=== PATIENT | male | born 1970 | race American Indian/Alaskan Native ===

== ENCOUNTER 2018-04-21 13:01 | Inpatient (IN) | payer MEDICARE ==
[2018-04-21] MEDS ORDERED: CARDIZEM IVP ONE (14:02)
[2018-04-21] MEDS ORDERED: TYLENOL PO ONE (14:02)
[2018-04-21 14:04] LABS: Hemoglobin 13.4 gm/dl (11.8-15.2); Mean Corpuscular HGB Conc 34 % (32-34); Mean Corpuscular Hemoglobin 33 pg (28-32); Mean Corpuscular Volume 99 fl (84-94); Red Blood Count 4.02 M/mm3 (3.65-5.03); Red Cell Distribution Width 16.5 % (13.2-15.2)
[2018-04-21 14:08] LABS: Platelet Count 96 K/mm3 (140-440)
[2018-04-21] MEDS ORDERED: NACL 0.9% 250ML 250 ML IV ONE (14:08)
--- NOTE | 2018-04-21 14:20 | Emergency Department Report ---
ED General Adult HPI - General Chief complaint: Arrhythmia/Palpitations Stated complaint: RAPID HEART BEAT Time Seen by Provider: 04/21/18 13:04 Source: patient, EMS Mode of arrival: Stretcher Limitations: No Limitations - History of Present Illness Initial comments: Patient is a 47-year-old male with a history of end-stage renal disease, DVT, prior CVA with a history of a facial who presents with the complaint of having an elevated heart rate and elevated blood pressure while at dialysis today. She apparently had an hour and a half worth of dialysis and initially was having dialysis on his right upper extremity fistula and this was transitioned to his left permacath as the patient became clogged per the patient. Patient never had no fever over the past 24 hours. Patient denies any chest pain or shortness of breath. After being brought in by EMS patient initially presented with heart rate in the 170s was down trended to 113 and a blood pressure 246/ 140 was down trended to 128/86 with no interventions. Patient denies any vomiting. Daughter states that the primary access for his dialysis has been his fistula and discussions had been had in the past on possibly removing the permacath. Patient denies cough, sore throat, or any sick contacts. - Related Data Home Medications Medication Instructions Recorded Confirmed Last Taken Cinacalcet HCl [Sensipar] 90 mg PO QPM 05/30/16 04/21/18 04/20/18 Warfarin Sodium 5 mg PO QDAY 05/30/16 04/21/18 04/20/18 Metoprolol [Lopressor TAB] 25 mg PO Q12H 12/26/17 04/21/18 Unknown Allergies Allergy/AdvReac Type Severity Reaction Status Date / Time cortisone [Cortisone] Allergy Unknown Verified 04/21/18 14:04 ED Review of Systems ROS: Stated complaint: RAPID HEART BEAT Other details as noted in HPI Constitutional: denies: chills, fever Eyes: denies: eye pain, eye discharge, vision change ENT: denies: ear pain, throat pain Respiratory: denies: cough, shortness of breath, wheezing Cardiovascular: denies: chest pain, palpitations Endocrine: no symptoms reported Gastrointestinal: denies: abdominal pain, nausea, diarrhea Genitourinary: denies: urgency, dysuria Musculoskeletal: denies: back pain, joint swelling, arthralgia Skin: denies: rash, lesions Neurological: denies: headache, weakness, paresthesias Psychiatric: denies: anxiety, depression Hematological/Lymphatic: denies: easy bleeding, easy bruising ED Past Medical Hx - Past Medical History Previous Medical History?: Yes Hx Hypertension: Yes Hx CVA: Yes Hx Heart Attack/AMI: Yes Hx Congestive Heart Failure: Yes Hx Diabetes: Yes Hx Renal Disease: Yes (ESRD on dialysis) Hx Seizures: Yes Hx Asthma: No Hx COPD: No Hx HIV: No Additional medical history: Anemia, - Surgical History Additional Surgical History: brain, left knee, shunt to right arm - Social History Smoking Status: Current Every Day Smoker Substance Use Type: None - Medications Home Medications: Home Medications Medication Instructions Recorded Confirmed Last Taken Type Cinacalcet HCl [Sensipar] 90 mg PO QPM 05/30/16 04/21/18 04/20/18 History Warfarin Sodium 5 mg PO QDAY 05/30/16 04/21/18 04/20/18 History Metoprolol [Lopressor TAB] 25 mg PO Q12H 12/26/17 04/21/18 Unknown History ED Physical Exam - General Limitations: No Limitations General appearance: alert, in no apparent distress - Head Head exam: Present: atraumatic, normocephalic - Eye Eye exam: Present: normal appearance - ENT ENT exam: Present: mucous membranes dry - Neck Neck exam: Present: normal inspection, other (supple;). Absent: lymphadenopathy - Respiratory Respiratory exam: Present: decreased breath sounds (in lower lung carney). Absent: respiratory distress - Cardiovascular Cardiovascular Exam: Present: regular rate, normal rhythm. Absent: systolic murmur, diastolic murmur, rubs, gallop - GI/Abdominal GI/Abdominal exam: Present: soft, normal bowel sounds - Rectal Rectal exam: Present: deferred - Extremities Exam Extremities exam: Present: normal inspection - Back Exam Back exam: Present: normal inspection - Neurological Exam Neurological exam: Present: alert, oriented X3 - Psychiatric Psychiatric exam: Present: normal affect, normal mood - Skin Skin exam: Present: warm, dry, intact, normal color. Absent: rash ED Course Vital Signs 04/21/18 04/21/18 04/21/18 13:30 13:57 14:01 Temperature 103.2 F H Pulse Rate 136 H 121 H Respiratory 16 16 15 Rate Blood Pressure 163/138 103/56 O2 Sat by Pulse 96 95 94 Oximetry 04/21/18 04/21/18 04/21/18 14:30 15:00 15:30 Temperature Pulse Rate 110 H 111 H 115 H Respiratory 17 18 22 Rate Blood Pressure 97/51 86/44 91/46 O2 Sat by Pulse 98 95 96 Oximetry ED Medical Decision Making - Lab Data Result diagrams: 04/21/18 13:53 04/21/18 13:58 - EKG Data -: EKG Interpreted by Me Rate: tachycardia - EKG Data Interpretation: LVH, other (Atrial Fibrillation with RVR) - Radiology Data Radiology results: report reviewed - Medical Decision Making Patient noted be febrile while in emergency department and blood cultures were drawn. Patient has no obvious evidence of pneumonia on chest x ray or pharyngitis of physical exam. He has a normal white count as well. However with the presence of a vas cath in his left chest that shows no obvious evidence of erythema or exudate surrounding it, with the presence of fever this may potentially be a source of infection and patient was given vancomycin therapy while here in the emergency department. Patient also noted to be in atrial fibrillation with a rapid ventricular rate. Patient initially was to be given diltiazem therapy however his systolic blood pressure dropped into the 80s and was giving hydration with 2 fluid boluses of 250 ml while here in the ER. Patient has remained asymptomatic and is talking with his . - Differential Diagnosis Bacteremia; Dehydration; Anemia; Electrolyte Abnormality Critical care time in (mins) excluding proc time.: 38 Critical care attestation.: If time is entered above; I have spent that time in minutes in the direct care of this critically ill patient, excluding procedure time. Critical Care time includes time spent on frequent reassessments, physician consultation, and direct bedside care. ED Disposition Clinical Impression: Fever, Atrial fibrillation with rapid ventricular response, ESRD (end stage renal disease), Hypotension Disposition: OP ADMIT IP TO THIS HOSP Is pt being admited?: Yes Condition: Fair Referrals: PRIMARY CARE, [Primary Care Provider] - 3-5 Days Time of Disposition: 16:34
[2018-04-21 14:40] LABS: Band Neutrophils # (Manual) 0.3 K/mm3; Basophils % (Manual) 0 % (0.0-1.8); Eosinophils % (Manual) 0 % (0.0-4.3); Total Cells Counted 100
[2018-04-21 14:41] LABS: Anisocytosis 1+; Burr Cells Few; Ovalocytes 1+; Platelet Estimate Appears Decreased; Tear Drop Cells Few
[2018-04-21 14:43] LABS: Albumin 3.4 g/dL (3.9-5); Calcium 8.7 mg/dL (8.4-10.2)
[2018-04-21] MEDS ORDERED: CARDIZEM IV ONE ×3 (14:45→15:00)
[2018-04-21 15:05] LABS: Chol/HDL Ratio 4.71 %
--- NOTE | 2018-04-21 15:22 | XRay Report ---
AP CHEST: HISTORY: chest pain Cardiomegaly is nearly resolved since 12/26/17. The heart is borderline in size on today's exam. Normal pulmonary vascularity. The lungs are clear. Left IJ venous catheter is unchanged in position. IMPRESSION: Borderline cardiomegaly. Lungs clear.
[2018-04-21 15:29] LABS: INR 2.17 (0.87-1.13)
[2018-04-21 15:30] LABS: Partial Thromboplastin Time 35.5 Sec. (24.2-36.6)
--- NOTE | 2018-04-21 15:49 | History and Physical Report ---
History of Present Illness Chief complaint: Im shaking, and I feel cold History of present illness: 47 YO Male with ESRD on HD (M,W,F), DVT, CVA with dysarthria, [place], CHF, Atrial Fib, Nicotine Dependence presents to ED for evaluation. Pt states that he has experienced subjective fever, and shaking chills over the past 1 day. Pt presented to dialysis clinic today and was found to have uncontrolled hypertension and blood pressure of 246/140 and heart rate in the 170's. EMS was notified and patient was transported to [facility] For further care and evaluation. Pt seen and evaluated in ED, Pt spiked a temperature to 103. Pt also states that he felt the same way the last time he had an infection. Pt ackowledges mild tenderness around his permacath site. Pt found to have ESRD, SIRS, Atrial Fib with RVR, and CHF. Pt denies CP, Palpitations, NVD, Syncope, Trauma, Skin Rash, Productive Cough, or recent ill contacts. Pt admitted to telemetry. Nephrology consulted in ED. Past History Past Medical History: acute [place], ESRD, heart failure, hypertension, stroke Past Surgical History: Other (Brain, L Knee, AV Fistula) Social history: , lives with family. denies: smoking, alcohol abuse, prescription drug abuse Family history: hypertension Medications and Allergies Allergies Allergy/AdvReac Type Severity Reaction Status Date / Time cortisone [Cortisone] Allergy Unknown Verified 04/21/18 14:04 Home Medications Medication Instructions Recorded Confirmed Last Taken Type Cinacalcet HCl [Sensipar] 90 mg PO QPM 05/30/16 04/21/18 04/20/18 History Warfarin Sodium 5 mg PO QDAY 05/30/16 04/21/18 04/20/18 History Metoprolol [Lopressor TAB] 25 mg PO Q12H 12/26/17 04/21/18 Unknown History Sevelamer Carbonate [Renvela] 800 mg PO TIDWM 04/21/18 04/21/18 Unknown History Active Meds: Active Medications Vancomycin HCl (Vancomycin/Ns 1 Gm/250 Ml) 1 gm in 250 mls @ 167.007 mls/hr IV ONCE SILVANA; Protocol Review of Systems Constitutional: fever, chills, weakness Ears, nose, mouth and throat: no ear pain, no ear discharge, no tinnitis, no decreased hearing, no nose pain Cardiovascular: no chest pain, no orthopnea, no palpitations, no rapid/ irregular heart beat, no edema Respiratory: no cough, no cough with sputum, no excessive sputum, no hemoptysis , no shortness of breath Gastrointestinal: no abdominal pain, no nausea, no vomiting, no diarrhea Genitourinary Male: no dysuria, no hematuria, no flank pain, no discharge, no urinary frequency, no urinary hesitancy Rectal: no pain, no incontinence, no bleeding, no itching, no hemorrhoids, no discharge Musculoskeletal: no neck stiffness, no neck pain, no shooting arm pain, no arm numbness/tingling, no low back pain Integumentary: no rash, no pruritis, no redness, no sores, no wounds, no jaundice Neurological: no head injury, no transient paralysis, no paralysis, no weakness , no parathesias Psychiatric: no anxiety, no memory loss, no change in sleep habits, no sleep disturbances, no change in libido Endocrine: no cold intolerance, no heat intolerance, no polyphagia, no excessive thirst, no polydipsia, no polyuria Hematologic/Lymphatic: no easy bruising, no easy bleeding, no lymphadenopathy, no lymphedema Allergic/Immunologic: no urticaria, no allergic rhinitis, no wheezing, no persistent infections, no anaphylaxis Exam - Constitutional Vitals: Temp Pulse Resp BP Pulse Ox 103.2 F H 111 H 18 86/44 95 04/21/18 13:57 04/21/18 15:00 04/21/18 15:00 04/21/18 15:00 04/21/18 15:00 General appearance: Present: mild distress - EENT Eyes: Present: PERRL ENT: hearing intact, clear oral mucosa - Neck Neck: Present: supple, normal ROM - Respiratory Respiratory effort: normal Respiratory: bilateral: CTA - Cardiovascular Heart Sounds: Present: S1 & S2. Absent: rub, click - Extremities Extremities: pulses symmetrical, No edema Peripheral Pulses: within normal limits - Abdominal General gastrointestinal: Present: soft, non-tender, non-distended, normal bowel sounds Male genitourinary: Present: normal - Integumentary Integumentary: Present: clear, warm, dry - Musculoskeletal Musculoskeletal: gait normal, strength equal bilaterally - Psychiatric Psychiatric: appropriate mood/affect, intact judgment & insight - Neurologic Neurologic: CNII-XII intact, moves all extremities Results - Labs CBC & Chem 7: 04/22/18 04:56 04/21/18 13:58 Labs: Abnormal lab results 04/21/18 04/21/18 04/21/18 Range/Units 13:53 13:58 14:40 MCV 99 H (84-94) fl MCH 33 H (28-32) pg RDW 16.5 H (13.2-15.2) % Plt Count 96 L (140-440) K/mm3 Seg Neuts % (Manual) 91.0 H (40.0-70.0) % Lymphocytes % (Manual) 2.0 L (13.4-35.0) % Lymphocytes # (Manual) 0.1 L (1.2-5.4) K/mm3 PT 25.6 H (12.2-14.9) Sec. INR 2.17 H (0.87-1.13) Sodium 134 L (137-145) mmol/L Potassium 3.2 L (3.6-5.0) mmol/L Chloride 92.4 L (98-107) mmol/L BUN 22 H (9-20) mg/dL Creatinine 11.2 H (0.8-1.5) mg/dL Glucose 152 H (75-100) mg/dL Lactic Acid (0.7-2.0) mmol/L Total Bilirubin 2.10 H (0.1-1.2) mg/dL ALT 6 L (7-56) units/L Total Creatine Kinase 229 H (55-170) units/L Troponin T 0.073 H (0.00-0.029) ng/mL Albumin 3.4 L (3.9-5) g/dL HDL Cholesterol 21 L (40-59) mg/dL Lipase 12 L (13-60) units/L 04/21/18 04/21/18 Range/Units 14:40 14:40 MCV (84-94) fl MCH (28-32) pg RDW (13.2-15.2) % Plt Count (140-440) K/mm3 Seg Neuts % (Manual) (40.0-70.0) % Lymphocytes % (Manual) (13.4-35.0) % Lymphocytes # (Manual) (1.2-5.4) K/mm3 PT (12.2-14.9) Sec. INR (0.87-1.13) Sodium (137-145) mmol/L Potassium (3.6-5.0) mmol/L Chloride (98-107) mmol/L BUN (9-20) mg/dL Creatinine (0.8-1.5) mg/dL Glucose (75-100) mg/dL Lactic Acid 3.50 H* (0.7-2.0) mmol/L Total Bilirubin (0.1-1.2) mg/dL ALT (7-56) units/L Total Creatine Kinase 252 H (55-170) units/L Troponin T (0.00-0.029) ng/mL Albumin (3.9-5) g/dL HDL Cholesterol (40-59) mg/dL Lipase (13-60) units/L Assessment and Plan - Patient Problems (1) SIRS due to infectious process with acute organ dysfunction Current Visit: Yes Status: Acute Plan to address problem: Iv antibiotics, IVF resuscitation, monitor uop q shift, serial lactic acid, blood cultures, urinalysis, blood culture from permacath, chext x ray, (2) CHF (congestive heart failure) Current Visit: Yes Status: Acute Qualifiers: Heart failure chronicity: acute on chronic Plan to address problem: Strict I/O, monitor uop q shift, daily weight, afterload reduction, chest x ray , supplemental oxygen, cardiology consult. Pt S/P Echo and S/P cardiac cath. (3) Atrial fibrillation with rapid ventricular response Current Visit: Yes Status: Acute Plan to address problem: resume rate control, supportive care. admit to telemetry, (4) Bacteremia associated with intravascular line Current Visit: No Status: Suspected Plan to address problem: Empiric antibiotic therapy, blood cultured, Nephrology consulted and symptoms discussed with nephrology service. Pending removal/replacement of permacath after Nephrology team discussed with vascular service. (5) Atrial fibrillation Current Visit: No Status: Chronic Qualifiers: Atrial fibrillation type: persistent Qualified Code(s): I48.1 - Persistent atrial fibrillation Plan to address problem: Resume rate control, Pt did not take rate control medication due to planned cataract surgery today. (6) ESRD (end stage renal disease) on dialysis Current Visit: No Status: Chronic (7) DVT prophylaxis Current Visit: No Status: Acute Plan to address problem: SCD to BLE while in bed
[2018-04-21] MEDS ORDERED: VANCOMYCIN/NS 1 GM/250 ML 1 GM/250 ML BAG IV SCH (16:00)
[2018-04-21] MEDS ORDERED: NACL 0.9% 500 ML 500 ML IV ONE (16:04)
[2018-04-21] MEDS ORDERED: SODIUM CHLORIDE FLUSH SYRINGE 10 ML IV PRN (16:27)
[2018-04-21] MEDS ORDERED: TYLENOL PO PRN (16:27)
[2018-04-21] MEDS ORDERED: PROVENTIL IH PRN (16:27)
[2018-04-21] MEDS ORDERED: ZOFRAN IV PRN (16:27)
[2018-04-22 05:27] LABS: Basophils % (Auto) 0.3 % (0.0-1.8); Eosinophils # (Auto) 0.1 K/mm3 (0.0-0.4); Eosinophils % (Auto) 1.9 % (0.0-4.3); Hematocrit 37.2 % (35.5-45.6); Hemoglobin 12.7 gm/dl (11.8-15.2); Lymphocytes # (Auto) 0.7 K/mm3 (1.2-5.4); Lymphocytes % (Auto) 10.5 % (13.4-35.0); Mean Corpuscular HGB Conc 34 % (32-34); Mean Corpuscular Hemoglobin 34 pg (28-32); Mean Corpuscular Volume 99 fl (84-94); Monocytes # (Auto) 0.7 K/mm3 (0.0-0.8); Monocytes % (Auto) 10.8 % (0.0-7.3); Platelet Count 100 K/mm3 (140-440); Red Blood Count 3.75 M/mm3 (3.65-5.03); Red Cell Distribution Width 16.5 % (13.2-15.2)
[2018-04-22] MEDS: SODIUM CHLORIDE FLUSH SYRINGE 10 ML IV SCH ×3 (07:16→21:28)
--- NOTE | 2018-04-22 09:46 | Consultation ---
History of Present Illness - History of Present Illness Thank you for the consultation ! Patient was evaluated today My assessment and plan are as follows; ESRD: Patient is currently in maintenance hemodialysis, his fistula did not work is currently being followed by his vascular surgeon catheter had to be used after which she started developing fever and chills did not feel good was also tachycardic has had evidence of lactic acidosis patient likely has line sepsis His dialysis catheter needs to be removed vascular surgery should be consulted in my opinion, as far as his fistula is concerned he does have not have a good thrill and bruit But working for now I believe he needs to be seen by vascular surgery, Dr bradley who is his vascular surgeon Anemia in end-stage renal disease: To monitor and follow hemoglobin currently 12.7 no erythropoietin needed Low platelet count: Check HIT panel for now due to dialysis status Lactic acidosis likely resulting from sepsis Hypokalemia: Mild 3.2 needs follow-up, Secondary hyperparathyroidism: Patient is currently on binders as well as Sensipar which she will need to continue Blood cultures: Currently in progress, continue with empiric antibiotic, infectious disease consultation recommended follow-up on the culture outpatient culture verbal report: Gram-negative gregory Patient was adequately counseled and educated regarding multiple renal related issues. overall prognosis remains guarded at this time All renal related questions were answered and simple Bengali pertinent lab studies as well as imaging results were also discussed with patient We will continue to follow and make recommendations from renal standpoint. Thank you for the consultation Author: Will Arreguin M.D. [facility], [address] [place] [address] Tel; [phone] Source of information: From patient History of present illness Patient is a 47-year-old -[place] male who has been currently on hemodialysis at [facility]. Patient is currently being followed by vascular surgeon Dr Bradley, and has had fistula placed which was working up until the used his dialysis catheter after which she became febrile and was sent to the hospital. Patient was also noted to have tachycardia lactic acidosis and was not feeling good and has had fever and chills. Lately he has been feeling very sad and was tearful during interview admits being depressed chronically and is willing to try an antidepressant he currently does not have any suicidal ideations, Outpatient blood culture as of today have been reported to have gram-negative gregory Patient is feeling much better today is fistula however has not been, use will during the last dialysis treatment, which does require further evaluation Past medical history significant for End-stage renal disease Anemia and end-stage renal disease Acute myocardial infarction Hypertension Stroke Patient also feels that he has been depressed Current allergies: Cortisone Home medication: Reviewed Social history: Patient is lives with his family no history of any alcohol drug or substance abuse Family history: Positive for hypertension Review of system: Malfunctioning fistula, fever and chills after using the dialysis catheter,patient was also noted to be tachycardic with lactic acidosis Also feels depressed not suicidal chronic issue was very tearful All other review of system were negative Physical examination Vitals: Reviewed General: No acute distress HEENT: Oral mucosa moist no pallor or icterus Neck: Supple without any JVD thyromegaly or nodular mass Chest: Clear to auscultation, catheter site unremarkable, hygiene poor Heart: Regular rate and rhythm S1-S2 heard no S3-S4 Abdomen: Soft nontender, bowel sounds present no renal bruit no suprapubic masses no CVA tenderness noted Extremity: Minimal edema dry skin no peripheral cyanosis fistula: Appears to have poorly matured Endocrine: Thyroid not enlarged Psychiatric: No agitation and aggression noted Musculoskeletal: No joint effusion noted Labs and x-rays: Reviewed from this admission Past History Past Medical History: acute [place], ESRD, heart failure, hypertension, stroke Past Surgical History: Other (Brain, L Knee, AV Fistula) Social history: , lives with family. denies: smoking, alcohol abuse, prescription drug abuse Family history: hypertension Medications and Allergies Allergies Allergy/AdvReac Type Severity Reaction Status Date / Time cortisone [Cortisone] Allergy Unknown Verified 04/21/18 14:04 Home Medications Medication Instructions Recorded Confirmed Last Taken Type Cinacalcet HCl [Sensipar] 90 mg PO QPM 05/30/16 04/21/18 04/20/18 History Warfarin Sodium 5 mg PO QDAY 05/30/16 04/21/18 04/20/18 History Metoprolol [Lopressor TAB] 25 mg PO Q12H 12/26/17 04/21/18 Unknown History Sevelamer Carbonate [Renvela] 800 mg PO TIDWM 04/21/18 04/21/18 Unknown History Active Meds: Active Medications Acetaminophen (Tylenol) 650 mg PO Q4H PRN PRN Reason: Pain MILD(1-3)/Fever >100.5/BOOTHE Albuterol (Proventil) 2.5 mg IH Q4HRT PRN PRN Reason: Shortness Of Breath Cinacalcet (Sensipar) 90 mg PO QPM [facility] Metoprolol Tartrate (Lopressor) 25 mg PO Q12H [facility] Ondansetron HCl (Zofran) 4 mg IV Q8H PRN PRN Reason: Nausea And Vomiting Sevelamer Carbonate (Renvela) 800 mg PO TIDWM [facility] Sodium Chloride (Sodium Chloride Flush Syringe 10 Ml) 10 ml IV BID [facility] Last Admin: 04/22/18 07:16 Dose: Not Given Sodium Chloride (Sodium Chloride Flush Syringe 10 Ml) 10 ml IV PRN PRN PRN Reason: LINE FLUSH Warfarin Sodium (Coumadin) 5 mg PO QDAY [facility]; Protocol Exam - Vital Signs Vital signs: Vital Signs Resp Pulse Ox 16 96 04/21/18 13:30 04/21/18 13:30 Results - Lab Results 04/22/18 04:56 04/21/18 13:58 Most recent lab results Calcium 8.7 mg/dL (8.4-10.2) 04/21/18 13:58
[2018-04-22] MEDS: LOPRESSOR PO SCH ×2 (10:25→21:29)
[2018-04-22] MEDS: RENVELA PO SCH ×3 (10:25→17:14)
--- NOTE | 2018-04-22 12:04 | Consultation ---
History of Present Illness Consult date: 04/22/18 Requesting physician: LILY LEE Consult reason: congestive heart failure History of present illness: The pt is a 47 YO male with a past medical history significant for ESRD on HD, permanent atrial fibrillation, anticoagulated with coumadin (consideration being given for Watchman device), CVA (hx of CVA in 2011 on coumadin with bleeding complications including subdural hemorrhage in 2012 requiring craniotomy), DVT, HTN, FIDEL. He is followed by [facility]. He presented with complaints of fever and chills for 1 day prior to arrival. He presented to dialysis clinic yesterday and was found to have elevated BPs and atrial fibrillation with RVR and was transported to [facility] ED for further eval/ management. Following arrival to ED, he was found to be in AFib RVR, BP 163/138 , T 103.2. He was given IV cardizem and is in AFib with CVR on evaluation. He denies any chest pain, palpitations, n/v, diaphoresis, dizziness or syncope. He reports compliance with his medication regimen and dialysis schedule. Echo done 09/2016 showed EF 55%, mod LVH, severe diastolic dysfunction with restrictive pattern, mild to mod MVR, mild to mod TR, severely dilated atria (L> R), mod elevated RVSP, borderline dilated ascending aorta (3.7cm). Lexiscan MPI stress test done 12/2017 was negative for significant ischemia. Past History Past Medical History: atrial fib, ESRD, heart failure, hypertension, stroke Past Surgical History: Other (Brain, L Knee, AV Fistula) Social history: , lives with family. denies: smoking, alcohol abuse, prescription drug abuse Family history: hypertension Medications and Allergies Allergies Allergy/AdvReac Type Severity Reaction Status Date / Time cortisone [Cortisone] Allergy Unknown Verified 04/21/18 14:04 Home Medications Medication Instructions Recorded Confirmed Last Taken Type Cinacalcet HCl [Sensipar] 90 mg PO QPM 05/30/16 04/21/18 04/20/18 History Warfarin Sodium 5 mg PO QDAY 05/30/16 04/21/18 04/20/18 History Metoprolol [Lopressor TAB] 25 mg PO Q12H 12/26/17 04/21/18 Unknown History Sevelamer Carbonate [Renvela] 800 mg PO TIDWM 04/21/18 04/21/18 Unknown History Active Meds: Active Medications Acetaminophen (Tylenol) 650 mg PO Q4H PRN PRN Reason: Pain MILD(1-3)/Fever >100.5/BOOTHE Albuterol (Proventil) 2.5 mg IH Q4HRT PRN PRN Reason: Shortness Of Breath Cinacalcet (Sensipar) 90 mg PO QPM [facility] Metoprolol Tartrate (Lopressor) 25 mg PO Q12H [facility] Last Admin: 04/22/18 10:25 Dose: 25 mg Ondansetron HCl (Zofran) 4 mg IV Q8H PRN PRN Reason: Nausea And Vomiting Sevelamer Carbonate (Renvela) 800 mg PO TIDWM [facility] Last Admin: 04/22/18 11:55 Dose: 800 mg Sodium Chloride (Sodium Chloride Flush Syringe 10 Ml) 10 ml IV BID [facility] Last Admin: 04/22/18 10:26 Dose: 10 ml Sodium Chloride (Sodium Chloride Flush Syringe 10 Ml) 10 ml IV PRN PRN PRN Reason: LINE FLUSH Warfarin Sodium (Coumadin) 5 mg PO DAILY@1700 [facility]; Protocol Review of Systems Constitutional: fever, chills, no weight loss, no weight gain Ears, nose, mouth and throat: no ear pain, no nose pain, no sinus pressure, no sinus pain Cardiovascular: high blood pressure, no chest pain, no orthopnea, no palpitations, no rapid/irregular heart beat, no edema, no syncope, no lightheadedness, no shortness of breath, no dyspnea on exertion Respiratory: no cough, no shortness of breath, no dyspnea on exertion, no congestion, no wheezing, no pain on inspiration Gastrointestinal: no abdominal pain, no nausea, no vomiting, no diarrhea, no constipation, no change in bowel habits Genitourinary Male: no dysuria, no hematuria, no flank pain, no discharge, no urinary frequency, no urinary hesitancy Musculoskeletal: no neck stiffness, no neck pain, no shooting arm pain, no arm numbness/tingling, no low back pain, no shooting leg pain Integumentary: no rash, no pruritis, no redness, no sores, no wounds Neurological: no head injury, no paralysis, no weakness, no parathesias, no numbness, no tingling, no seizures, no syncope Psychiatric: no anxiety Endocrine: no cold intolerance, no heat intolerance Hematologic/Lymphatic: no easy bruising, no easy bleeding, no lymphadenopathy Allergic/Immunologic: no urticaria, no wheezing, no persistent infections Physical Examination Vital Signs Resp Pulse Ox 16 96 04/21/18 13:30 04/21/18 13:30 General appearance: no acute distress HEENT: Positive: PERRL, Normocephaly, Mucus Membranes Moist Neck: Positive: neck supple, trachea midline Cardiac: Positive: irregularly irregular, S1/S2, Systolic Murmur Lungs: Positive: clear to auscultation Neuro: Positive: Grossly Intact Abdomen: Positive: Soft. Negative: Tender Skin: Positive: Clear. Negative: Rash, Wound Musculoskeletal: No Fluid Collection, No Pain, Normal Range of Motion Extremities: Absent: edema Results 04/22/18 04:56 04/21/18 13:58 Cardiac Enzymes 04/21/18 Range/Units 13:58 AST 17 (5-40) units/L Coagulation 04/21/18 Range/Units 14:40 PT 25.6 H (12.2-14.9) Sec. INR 2.17 H (0.87-1.13) APTT 35.5 (24.2-36.6) Sec. Lipids 04/21/18 Range/Units 13:58 Triglycerides 101 (2-149) mg/dL Cholesterol 99 (50-199) mg/dL HDL Cholesterol 21 L (40-59) mg/dL Cholesterol/HDL Ratio 4.71 % CBC 04/21/18 04/22/18 Range/Units 13:53 04:56 WBC 4.6 6.5 (4.5-11.0) K/mm3 RBC 4.02 3.75 (3.65-5.03) M/mm3 Hgb 13.4 12.7 (11.8-15.2) gm/dl Hct 40.0 37.2 (35.5-45.6) % Plt Count 96 L 100 L (140-440) K/mm3 Lymph # 0.7 L (1.2-5.4) K/mm3 Baxter # 0.7 (0.0-0.8) K/mm3 Eos # 0.1 (0.0-0.4) K/mm3 Baso # 0.0 (0.0-0.1) K/mm3 Comprehensive Metabolic Panel 04/21/18 Range/Units 13:58 Sodium 134 L (137-145) mmol/L Potassium 3.2 L (3.6-5.0) mmol/L Chloride 92.4 L (98-107) mmol/L Carbon Dioxide 23 (22-30) mmol/L BUN 22 H (9-20) mg/dL Creatinine 11.2 H (0.8-1.5) mg/dL Glucose 152 H (75-100) mg/dL Calcium 8.7 (8.4-10.2) mg/dL AST 17 (5-40) units/L ALT 6 L (7-56) units/L Alkaline Phosphatase 75 (35-129) units/L Total Protein 6.9 (6.3-8.2) g/dL Albumin 3.4 L (3.9-5) g/dL - Imaging and Cardiology Echo: report reviewed ( 09/2016 showed EF 55%, mod LVH, severe diastolic dysfunction with restrictive pattern, mild to mod MVR, mild to mod TR, severely dilated atria (L>R), mod elevated RVSP, borderline dilated ascending aorta ( 3.7cm).) EKG: report reviewed, image reviewed EKG interpretations - Telemetry EKG Rhythm: Atrial Fibrillation - EKG Supraventricular dysrhythmia: atrial fibrillation Chamber hypertrophy or enlargement: left ventricular hypertro Repolarization changes or abnormalities: repolarization abn secondary to ventricular hypertrophy Assessment and Plan Currently stable cardiac status. No current clinical evidence of acutely decompensated HF. Pt currently in AFib with CVR. Agree with current cardiac regimen. Obtain echo. Blood cultures in progress. Abx per primary. Consider ID consultation per primary. Assessment and plan reviewed with pt at bedside. The patient has been seen in conjunction with Dr. Caraballo who agrees with the assessment and plan of care. - Patient Problems (1) Atrial fibrillation with rapid ventricular response Current Visit: Yes Status: Acute (2) Accelerated hypertension Current Visit: Yes Status: Acute (3) Sepsis Current Visit: Yes Status: Suspected (4) End stage renal disease Current Visit: Yes Status: Chronic (5) History of CVA (cerebrovascular accident) Current Visit: Yes Status: Chronic (6) Sleep apnea Current Visit: Yes Status: Chronic (7) History of DVT (deep vein thrombosis) Current Visit: Yes Status: Chronic
[2018-04-22] MEDS: COUMADIN PO SCH (17:12)
[2018-04-22] MEDS: SENSIPAR PO SCH (17:14)
--- NOTE | 2018-04-22 17:36 | Progress Note ---
Assessment and Plan Assessment and Plan - Patient Problems (1) SIRS due to infectious process with acute organ dysfunction Current Visit: Yes Status: Acute Plan to address problem: Iv antibiotics, IVF resuscitation, monitor uop q shift, serial lactic acid, blood cultures, urinalysis, blood culture from permacath, chext x ray, (2) CHF (congestive heart failure) Current Visit: Yes Status: Acute Qualifiers: Heart failure chronicity: acute on chronic Plan to address problem: Strict I/O, monitor uop q shift, daily weight, afterload reduction, chest x ray , supplemental oxygen, cardiology consult. Pt S/P Echo and S/P cardiac cath. (3) Atrial fibrillation with rapid ventricular response Current Visit: Yes Status: Acute Plan to address problem: resume rate control, supportive care. admit to telemetry, (4) Bacteremia associated with intravascular line Current Visit: No Status: Suspected Plan to address problem: Empiric antibiotic therapy, blood cultured, Nephrology consulted and symptoms discussed with nephrology service. Pending removal/replacement of permacath after Nephrology team discussed with vascular service. (5) Atrial fibrillation Current Visit: No Status: Chronic Qualifiers: Atrial fibrillation type: persistent Qualified Code(s): I48.1 - Persistent atrial fibrillation Plan to address problem: Resume rate control, Pt did not take rate control medication due to planned cataract surgery today. (6) ESRD (end stage renal disease) on dialysis Current Visit: No Status: Chronic (7) DVT prophylaxis Current Visit: No Status: Acute Plan to address problem: SCD to BLE while in bed Subjective Date of service: 04/22/18 Principal diagnosis: SIRS Vascath infection Interval history: Sx better Objective - Constitutional Vitals: Vital Signs - 12hr 04/22/18 04/22/18 04/22/18 06:51 08:04 08:29 Temperature 98.5 F Pulse Rate 86 82 97 H Pulse Rate [ Apical] Respiratory 20 Rate Blood Pressure 108/66 O2 Sat by Pulse 100 Oximetry 04/22/18 04/22/18 04/22/18 10:00 11:29 16:12 Temperature 98.1 F 98.8 F Pulse Rate 78 75 Pulse Rate [ 97 H Apical] Respiratory 20 20 Rate Blood Pressure 98/73 106/68 O2 Sat by Pulse 97 100 Oximetry General appearance: Present: no acute distress, well-nourished - EENT Eyes: PERRL, EOM intact ENT: hearing intact, clear oral mucosa Ears: bilateral: normal - Neck Neck: supple, normal ROM - Respiratory Respiratory effort: normal Respiratory: bilateral: CTA - Breasts Breasts: normal - Cardiovascular Rhythm: regular Heart Sounds: Present: S1 & S2. Absent: gallop, rub Extremities: pulses intact, No edema, normal color, Full ROM - Gastrointestinal General gastrointestinal: Present: soft, non-tender, non-distended, normal bowel sounds - Genitourinary Male genitourinary: normal - Integumentary Integumentary: clear, warm, dry - Musculoskeletal Musculoskeletal: 1, strength equal bilaterally - Neurologic Neurologic: moves all extremities - Psychiatric Psychiatric: memory intact, appropriate mood/affect, intact judgment & insight - Labs CBC & Chem 7: 04/24/18 12:31 04/24/18 12:31 Labs: Abnormal lab results 04/21/18 04/22/18 Range/Units 19:15 04:56 MCV 99 H (84-94) fl MCH 34 H (28-32) pg RDW 16.5 H (13.2-15.2) % Plt Count 100 L (140-440) K/mm3 Lymph % (Auto) 10.5 L (13.4-35.0) % Dixie % (Auto) 10.8 H (0.0-7.3) % Lymph # 0.7 L (1.2-5.4) K/mm3 Seg Neutrophils % 76.5 H (40.0-70.0) % Lactic Acid 2.10 H* (0.7-2.0) mmol/L
[2018-04-22] MEDS ORDERED: VANCOMYCIN PHARMACY TO DOSE IV SCH (18:00)
[2018-04-22] MEDS ORDERED: NON-FORMULARY (Cinacalcet Hcl [Sensipar] 90 MG) PO SCH (18:00)
[2018-04-22] MEDS ORDERED: ROCEPHIN/NS 1 GM/50 ML 1 GM/50 ML BAG IV SCH (18:00)
[2018-04-22] MEDS ORDERED: MAXIPIME/NS 1 GM/100 ML 1 GM/100 ML BAG IV ONE (19:15)
[2018-04-22] MEDS ORDERED: MAXIPIME/NS 2 GM/100 ML 2 GM/100 ML BAG IV SCH (22:00)
[2018-04-23 06:35] LABS: INR 2.71 (0.87-1.13)
[2018-04-23] MEDS: LOPRESSOR PO SCH ×2 (08:10→20:25)
[2018-04-23] MEDS ORDERED: NACL 0.9% 100 ML IV PRN (09:22)
--- NOTE | 2018-04-23 09:22 | Progress Note ---
Subjective Principal diagnosis: SIRS Vascath infection Interval history: Patient was seen today for follow-up on multiple renal related issues Events of this hospitalization noted Patient culture grew gram-negative gregory Patient denies having any chest pain pressure or shortness of breath Vitals labs intake output medications were reviewed Social history: Reviewed Allergies: Reviewed Family history: Reviewed Physical examination HEENT: Oral mucosa moist no pallor or icterus Neck: Supple no JVD Chest: Clear to auscultation anteriorly CVS: Regular rate and rhythm S1 and S2 heard Abdomen: Soft nontender no suprapubic masses no organomegaly appreciable Extremity: Dry skin less than 1+ peripheral edema Musculoskeletal: No joint effusion noted in knees and ankle Neurological: Alert awake Dermatology: No petechial rashes Psychiatry: No evidence of any agitation and aggression noted Assessment and plan ESRD: Catheter is malfunctioning fistula did not work at the dialysis center however he still has a good flow may be a week thrill, if there is still an issue we may need to consider vascular surgery consultation, dialysis catheter needs to be removed, his consider interventional radiology/or vascular surgery for removal of dialysis catheter Gram-negative gregory noted in blood stream from dialysis center patient needs infectious disease consultation dialysis catheter needs to be removed as he was febrile and tachycardic and has had lactic acidosis after the dialysis catheter was used Anemia in end-stage renal disease: Hemoglobin is satisfactory 12.7 no indication for erythropoietin Secondary hyperparathyroidism check phosphorus and PTH level Depression long-standing: Consider initiation of Zoloft 50 mg increasing to 100 mg once a day patient willing to start the therapy Lactic acidosis likely resulting from line sepsis Hypokalemia needs follow-up on the labs today Will order Some evidence of volume overload but patient clinically stablen Patient was adequately counseled and educated regarding multiple renal related issues Pertinent lab findings were discussed with patient, patient does exhibit good understanding of renal issues We'll continue to follow and make recommendation from renal standpoint Objective - Vital Signs Vital signs: Vital Signs - 12hr 04/22/18 04/22/18 04/23/18 21:22 22:51 00:03 Temperature 97.5 F L Pulse Rate 83 79 Respiratory 20 20 Rate Blood Pressure 110/74 Blood Pressure [Left] O2 Sat by Pulse 96 98 96 Oximetry 04/23/18 04/23/18 04/23/18 02:19 04:16 07:55 Temperature 98.8 F 98.2 F Pulse Rate 78 74 Respiratory 20 20 Rate Blood Pressure 108/75 Blood Pressure 109/72 [Left] O2 Sat by Pulse 97 99 100 Oximetry 04/23/18 04/23/18 09:00 09:07 Temperature Pulse Rate 83 Respiratory Rate Blood Pressure Blood Pressure [Left] O2 Sat by Pulse 98 Oximetry - Lab 04/22/18 04:56 04/21/18 13:58 Most recent lab results Calcium 8.7 mg/dL (8.4-10.2) 04/21/18 13:58
[2018-04-23] MEDS: MAXIPIME/NS 2 GM/100 ML 2 GM/100 ML BAG IV SCH ×2 (10:25→17:17)
--- NOTE | 2018-04-23 11:09 | Progress Note ---
Assessment and Plan Currently stable cardiac status. Per nephrology, gram-negative gregory noted in blood stream from dialysis catheter, patient needs infectious disease consultation dialysis catheter needs to be removed. Assessment and plan reviewed with pt at bedside. The patient has been seen in conjunction with Dr. Caraballo who agrees with the assessment and plan of care. - Patient Problems (1) Atrial fibrillation with rapid ventricular response Current Visit: Yes Status: Acute (2) Accelerated hypertension Current Visit: Yes Status: Acute (3) Sepsis Current Visit: Yes Status: Suspected (4) End stage renal disease Current Visit: Yes Status: Chronic (5) History of CVA (cerebrovascular accident) Current Visit: Yes Status: Chronic (6) Sleep apnea Current Visit: Yes Status: Chronic (7) History of DVT (deep vein thrombosis) Current Visit: Yes Status: Chronic Subjective Date of service: 04/23/18 Principal diagnosis: SIRS Vascath infection Interval history: pt resting up in chair, states he is feeling better today. tele reviewed - in AFib with CVR. Objective Last Vital Signs Temp 98.2 F 04/23/18 07:55 Pulse 83 04/23/18 09:00 Resp 20 04/23/18 07:55 BP 109/72 04/23/18 07:55 Pulse Ox 98 04/23/18 09:07 - Physical Examination General: No Apparent Distress HEENT: Positive: PERRL, Normocephaly, Mucus Membranes Moist Neck: Positive: neck supple, trachea midline Cardiac: Positive: irregularly irregular, S1/S2 Lungs: Positive: clear to auscultation Neuro: Positive: Grossly Intact Abdomen: Positive: Soft. Negative: Tender Skin: Positive: Clear. Negative: Rash, Wound Musculoskeletal: No Fluid Collection, No Pain, Normal Range of Motion Extremities: Absent: edema - Labs and Meds Coagulation 04/23/18 Range/Units 05:38 PT 30.6 H (12.2-14.9) Sec. INR 2.71 H (0.87-1.13) - Imaging and Cardiology EKG: report reviewed, image reviewed Echo: report reviewed ( 09/2016 showed EF 55%, mod LVH, severe diastolic dysfunction with restrictive pattern, mild to mod MVR, mild to mod TR, severely dilated atria (L>R), mod elevated RVSP, borderline dilated ascending aorta ( 3.7cm).) Chamber hypertrophy or enlargement: left ventricular hypertro Repolarization changes or abnormalities: repolarization abn secondary to ventricular hypertrophy
[2018-04-23] MEDS ORDERED: NACL 0.9 (PRIMING MACHINE ONLY DIALYSIS) MC ONE (12:12)
[2018-04-23] MEDS ORDERED: VANCOMYCIN 1,250 MG in NACL 0.9% 250ML 250 ML IV ONE (13:00)
--- NOTE | 2018-04-23 17:06 | Progress Note ---
Assessment and Plan Assessment and Plan - Patient Problems (1) SIRS due to infectious process with acute organ dysfunction Current Visit: Yes Status: Acute Plan to address problem: Iv antibiotics, IVF resuscitation, monitor uop q shift, serial lactic acid, blood cultures, urinalysis, blood culture from permacath, chext x ray, (2) CHF (congestive heart failure) Current Visit: Yes Status: Acute Qualifiers: Heart failure chronicity: acute on chronic Plan to address problem: Strict I/O, monitor uop q shift, daily weight, afterload reduction, chest x ray , supplemental oxygen, cardiology consult. Pt S/P Echo and S/P cardiac cath. (3) Atrial fibrillation with rapid ventricular response Current Visit: Yes Status: Acute Plan to address problem: resume rate control, supportive care. admit to telemetry, (4) Bacteremia associated with intravascular line Current Visit: No Status: Suspected Plan to address problem: Empiric antibiotic therapy, blood cultured, Nephrology consulted and symptoms discussed with nephrology service. Pending removal/replacement of permacath after Nephrology team discussed with vascular service. (5) Atrial fibrillation Current Visit: No Status: Chronic Qualifiers: Atrial fibrillation type: persistent Qualified Code(s): I48.1 - Persistent atrial fibrillation Plan to address problem: Resume rate control, Pt did not take rate control medication due to planned cataract surgery today. (6) ESRD (end stage renal disease) on dialysis Current Visit: No Status: Chronic (7) DVT prophylaxis Current Visit: No Status: Acute Plan to address problem: SCD to BLE while in bed Subjective Date of service: 04/23/18 Principal diagnosis: SIRS Vascath infection Interval history: Sx better Objective - Constitutional Vitals: Vital Signs - 12hr 04/23/18 04/23/18 04/23/18 07:55 09:00 09:07 Temperature 98.2 F Pulse Rate 74 83 Respiratory 20 Rate Blood Pressure Blood Pressure 109/72 [Left] O2 Sat by Pulse 100 98 Oximetry 04/23/18 04/23/18 04/23/18 11:00 11:15 11:30 Temperature 98.2 F Pulse Rate 72 69 72 Respiratory 18 Rate Blood Pressure 107/63 112/61 131/68 Blood Pressure [Left] O2 Sat by Pulse Oximetry 04/23/18 04/23/18 04/23/18 11:45 12:00 12:15 Temperature Pulse Rate 76 74 58 L Respiratory Rate Blood Pressure 132/77 123/74 106/58 Blood Pressure [Left] O2 Sat by Pulse Oximetry 04/23/18 04/23/18 04/23/18 12:30 12:45 13:00 Temperature Pulse Rate 77 64 73 Respiratory Rate Blood Pressure 106/59 114/53 101/53 Blood Pressure [Left] O2 Sat by Pulse Oximetry 04/23/18 04/23/18 04/23/18 13:15 13:30 13:45 Temperature Pulse Rate 76 71 71 Respiratory Rate Blood Pressure 111/57 95/54 101/55 Blood Pressure [Left] O2 Sat by Pulse Oximetry 04/23/18 04/23/18 04/23/18 14:00 14:15 14:30 Temperature Pulse Rate 76 72 75 Respiratory Rate Blood Pressure 102/60 99/59 112/57 Blood Pressure [Left] O2 Sat by Pulse Oximetry 04/23/18 04/23/18 04/23/18 14:45 15:00 15:15 Temperature 98.0 F Pulse Rate 70 73 76 Respiratory 18 Rate Blood Pressure 112/54 104/57 112/52 Blood Pressure [Left] O2 Sat by Pulse Oximetry General appearance: Present: no acute distress, well-nourished - EENT Eyes: PERRL, EOM intact ENT: hearing intact, clear oral mucosa Ears: bilateral: normal - Neck Neck: supple, normal ROM - Respiratory Respiratory effort: normal Respiratory: bilateral: CTA - Breasts Breasts: normal - Cardiovascular Rhythm: regular Heart Sounds: Present: S1 & S2. Absent: gallop, rub Extremities: pulses intact, No edema, normal color, Full ROM - Gastrointestinal General gastrointestinal: Present: soft, non-tender, non-distended, normal bowel sounds - Genitourinary Male genitourinary: normal - Integumentary Integumentary: clear, warm, dry - Musculoskeletal Musculoskeletal: 1, strength equal bilaterally - Neurologic Neurologic: moves all extremities - Psychiatric Psychiatric: memory intact, appropriate mood/affect, intact judgment & insight - Labs CBC & Chem 7: 04/24/18 12:31 04/24/18 12:31 Labs: Abnormal lab results 04/23/18 Range/Units 05:38 PT 30.6 H (12.2-14.9) Sec. INR 2.71 H (0.87-1.13)
[2018-04-23] MEDS: ZOLOFT PO SCH (17:13)
[2018-04-23] MEDS: SENSIPAR PO SCH (17:13)
[2018-04-23] MEDS: RENVELA PO SCH (17:13)
[2018-04-23] MEDS: COUMADIN PO SCH (17:17)
--- NOTE | 2018-04-23 17:56 | Consultation ---
History of Present Illness - Reason for Consult Consult date: 04/23/18 Malfunctioning Hemodialysis Access - History of Present Illness This patient is a 47-year-old -[place] male that was admitted via the emergency room on 04/21/2018 with suspected bacteremia. This patient has end- stage renal disease on hemodialysis. He has an AV fistula in his right upper extremity (transposed basilic vein to brachial artery AV fistula created by Dr. Hopson on 12/23/2017). He previously was using a left internal jugular vein permacath for hemodialysis. This was last exchanged over a wire and 12/31/2017. Patient's states that he's been using the AV fistula for hemodialysis for the last month. Apparently on Friday his access was infiltrated and they switched to using his permacath for hemodialysis. He subsequently began to feel ill. He apparently had blood cultures drawn. These were reported as positive for gram-negative rods, and the patient was sent to the emergency room. A vascular surgery consult has been requested to evaluate for a malfunctioning AV fistula and permacath removal. Past History Past Medical History: acute [place], atrial fib (chronic atrial fibrillation for which she takes warfarin he is followed by Dr. 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 Hopson or 12/23/2017, craniotomy for hemorrhage per previous medical record) Social history: , lives with family. denies: smoking, alcohol abuse, prescription drug abuse Family history: hypertension Medications and Allergies Allergies Allergy/AdvReac Type Severity Reaction Status Date / Time cortisone [Cortisone] Allergy Unknown Verified 04/21/18 14:04 Home Medications Medication Instructions Recorded Confirmed Last Taken Type Cinacalcet HCl [Sensipar] 90 mg PO QPM 05/30/16 04/21/18 04/20/18 History Warfarin Sodium 5 mg PO QDAY 05/30/16 04/21/18 04/20/18 History Metoprolol [Lopressor TAB] 25 mg PO Q12H 12/26/17 04/21/18 Unknown History Sevelamer Carbonate [Renvela] 800 mg PO TIDWM 04/21/18 04/21/18 Unknown History Active Meds: Active Medications Acetaminophen (Tylenol) 650 mg PO Q4H PRN PRN Reason: Pain MILD(1-3)/Fever >100.5/BOOTHE Albuterol (Proventil) 2.5 mg IH Q4HRT PRN PRN Reason: Shortness Of Breath Cinacalcet (Sensipar) 90 mg PO QPM [facility] Last Admin: 04/23/18 17:13 Dose: 90 mg Cefepime HCl (Maxipime/Ns 2 Gm/100 Ml) 2 gm in 100 mls @ 200 mls/hr IV Q24HR [facility] Last Admin: 04/23/18 17:17 Dose: 200 mls/hr Sodium Chloride (Nacl 0.9%) 100 mls @ 999 mls/hr IV YENY PRN PRN Reason: Hypotension Metoprolol Tartrate (Lopressor) 25 mg PO Q12H [facility] Last Admin: 04/23/18 08:10 Dose: Not Given Ondansetron HCl (Zofran) 4 mg IV Q8H PRN PRN Reason: Nausea And Vomiting Sertraline HCl (Zoloft) 50 mg PO QDAY [facility] Last Admin: 04/23/18 17:13 Dose: 50 mg Sevelamer Carbonate (Renvela) 800 mg PO TIDWM [facility] Last Admin: 04/23/18 17:13 Dose: 800 mg Sodium Chloride (Sodium Chloride Flush Syringe 10 Ml) 10 ml IV BID [facility] Last Admin: 04/22/18 21:28 Dose: 10 ml Sodium Chloride (Sodium Chloride Flush Syringe 10 Ml) 10 ml IV PRN PRN PRN Reason: LINE FLUSH Warfarin Sodium (Coumadin) 5 mg PO DAILY@1700 [facility]; Protocol Last Admin: 04/23/18 17:17 Dose: 5 mg Review of Systems All systems: negative Exam - Constitutional Vitals: Temp Pulse Resp BP Pulse Ox 98.0 F 76 18 112/52 98 04/23/18 15:15 04/23/18 15:15 04/23/18 15:15 04/23/18 15:15 04/23/18 09:07 General appearance: Present: no acute distress - EENT Eyes: Present: EOM intact ENT: hearing intact - Neck Neck: Present: supple (left internal jugular vein permacath) - Respiratory Respiratory effort: normal - Extremities Extremities: no ischemia Extremity abnormal: edema (moderate swelling of the right upper extremity, upper arm AV fistula with an easily palpable thrill, no erythema or drainage appreciated) - Psychiatric Psychiatric: cooperative - Neurologic Neurologic: no focal deficits Results - Labs CBC & Chem 7: 04/22/18 04:56 04/21/18 13:58 Labs: Abnormal lab results 04/23/18 Range/Units 05:38 PT 30.6 H (12.2-14.9) Sec. INR 2.71 H (0.87-1.13) Assessment and Plan This patient was admitted with a suspected bacteremia. He is currently afebrile; his in-hospital blood cultures are negative at 24 hours. He has used his AV fistula for hemodialysis over the last month. Earlier this week his AV fistula was reportedly infiltrated, and his dialysis unit converted back to his permacath for hemodialysis. The patient subsequently felt poorly and outpatient blood cultures were reported as positive for gram-negative bacteremia. A vascular surgery consult has been requested to evaluate. Patient will be made nothing by mouth after midnight in preparation for a fistulogram tomorrow. If the AV fistula appears to be adequate for use, then the permacath mobile removed following the fistulogram. However, if it is unable to be accessed then the patient will need permacath exchange over wire. - Patient Problems (1) Dialysis AV fistula malfunction Current Visit: Yes Status: Acute (2) End stage renal disease Current Visit: Yes Status: Chronic (3) Atrial fibrillation Current Visit: No Status: Chronic Qualifiers: Atrial fibrillation type: persistent Qualified Code(s): I48.1 - Persistent atrial fibrillation
[2018-04-23] MEDS: SODIUM CHLORIDE FLUSH SYRINGE 10 ML IV SCH (20:23)
[2018-04-24 04:12] LABS: INR 2.52 (0.87-1.13)
[2018-04-24] MEDS: RENVELA PO SCH ×3 (08:00→18:05)
[2018-04-24] MEDS: LOPRESSOR PO SCH ×2 (10:00→21:46)
[2018-04-24] MEDS: ZOLOFT PO SCH ×2 (10:01→17:18)
--- NOTE | 2018-04-24 11:05 | Progress Note ---
Assessment and Plan For possible permacath removal today per vascular. Currently stable cardiac status. Nothing further to add from cardiac perspective at this time. Will follow on as needed basis. Assessment and plan reviewed with pt at bedside. The patient has been seen in conjunction with Dr. Caraballo who agrees with the assessment and plan of care. - Patient Problems (1) Atrial fibrillation with rapid ventricular response Current Visit: Yes Status: Acute (2) Accelerated hypertension Current Visit: Yes Status: Acute (3) Sepsis Current Visit: Yes Status: Suspected (4) End stage renal disease Current Visit: Yes Status: Chronic (5) History of CVA (cerebrovascular accident) Current Visit: Yes Status: Chronic (6) Sleep apnea Current Visit: Yes Status: Chronic (7) History of DVT (deep vein thrombosis) Current Visit: Yes Status: Chronic Subjective Date of service: 04/24/18 Principal diagnosis: SIRS Vascath infection Interval history: pt resting up in chair, states he is feeling better today. tele reviewed - in AFib with CVR. Objective Last Vital Signs Temp 97.7 F 04/24/18 07:55 Pulse 92 H 04/24/18 07:55 Resp 18 04/24/18 07:55 BP 109/84 04/24/18 07:55 Pulse Ox 100 04/24/18 07:55 - Physical Examination General: No Apparent Distress HEENT: Positive: PERRL, Normocephaly, Mucus Membranes Moist Neck: Positive: neck supple, trachea midline Cardiac: Positive: irregularly irregular, S1/S2 Lungs: Positive: clear to auscultation Neuro: Positive: Grossly Intact Abdomen: Positive: Soft. Negative: Tender Skin: Positive: Clear. Negative: Rash, Wound Musculoskeletal: No Fluid Collection, No Pain, Normal Range of Motion Extremities: Absent: edema - Labs and Meds Coagulation 04/24/18 Range/Units 03:21 PT 27.7 H (12.2-14.9) Sec. INR 2.52 H (0.87-1.13) - Imaging and Cardiology EKG: report reviewed, image reviewed Echo: report reviewed ( 09/2016 showed EF 55%, mod LVH, severe diastolic dysfunction with restrictive pattern, mild to mod MVR, mild to mod TR, severely dilated atria (L>R), mod elevated RVSP, borderline dilated ascending aorta ( 3.7cm).) - Telemetry EKG Rhythm: Atrial Fibrillation Chamber hypertrophy or enlargement: left ventricular hypertro Repolarization changes or abnormalities: repolarization abn secondary to ventricular hypertrophy
--- NOTE | 2018-04-24 11:14 | Progress Note ---
Subjective Principal diagnosis: SIRS Vascath infection Interval history: Patient was seen today for follow-up on multiple renal related issues Events of this hospitalization noted Patient culture grew gram-negative gregory Patient denies having any chest pain pressure or shortness of breath Vitals labs intake output medications were reviewed Social history: Reviewed Allergies: Reviewed Family history: Reviewed Physical examination HEENT: Oral mucosa moist no pallor or icterus Neck: Supple no JVD Chest: Clear to auscultation anteriorly CVS: Regular rate and rhythm S1 and S2 heard Abdomen: Soft nontender no suprapubic masses no organomegaly appreciable Extremity: Dry skin less than 1+ peripheral edema Musculoskeletal: No joint effusion noted in knees and ankle Neurological: Alert awake Dermatology: No petechial rashes Psychiatry: No evidence of any agitation and aggression noted Assessment and plan End-stage renal disease: Continue with hemodialysis for now Friday Infected permacath needs to be removed, fistula did not work well in outpatient setting Patient does need follow-up lab Hypokalemia: Patient needs to be dialyzed with higher potassium bath Depression: Started treatment with Zoloft this has been a chronic issue and has been discussed with patient Hyponatremia: Chronic likely will do a follow-up Elevated bilirubin patient does need a CMP to follow-up etiology of this is currently not clear to me Anemia in end-stage renal disease current hemoglobin is around 12.7 Blood cultures outside from the catheter was reported as positive for gram- negative gregory blood culture currently here showing no growth so far Patient has had fever or chills elevated lactic acid level and tachycardia upon admission Outpatient dialysis clinic is at [facility] vascular surgeon is Dr. Hopson with whom I have discussed his case already We'll continue to follow and make recommendation from renal standpoint Objective - Vital Signs Vital signs: Vital Signs - 12hr 04/24/18 04/24/18 04/24/18 00:07 00:09 04:19 Temperature 98.1 F 98.3 F Pulse Rate 79 88 82 Respiratory 17 17 18 Rate Blood Pressure 114/74 Blood Pressure 114/74 131/80 [Left] O2 Sat by Pulse 97 97 99 Oximetry 04/24/18 07:55 Temperature 97.7 F Pulse Rate 92 H Respiratory 18 Rate Blood Pressure 109/84 Blood Pressure [Left] O2 Sat by Pulse 100 Oximetry - Lab 04/22/18 04:56 04/21/18 13:58 Most recent lab results Calcium 8.7 mg/dL (8.4-10.2) 04/21/18 13:58
--- NOTE | 2018-04-24 12:17 | Consultation ---
History of Present Illness - Reason for Consult Consult date: 04/24/18 bacteremia Requesting physician: FREEMAN ARREGUIN - History of Present Illness 47 y/o male with history of ESRD on HD (M,W,F), DVT, CVA with dysarthria, [place], CHF, Atrial Fib, Nicotine Dependence; well known to ID due to previous E. coli septicemia from old perm cath infection on 12/26/17 (Blood cx grew 2 of 4 bottles , repeat blood cx 12/29 neg) s/p exchange over a wire of Left chest HD catheter by vascular on 12/31/17, treated with ceftriaxone IV inpatient then sent home on augmentin 500 mg PO q24h through 01/12/18. Patient was re-admitted on 04/21/18 due to subjective fever and shaking chills after HD using his old permcath. He has been using the AV fistula for hemodialysis for the last month. He has an AV fistula in his right upper extremity (created by Dr. Hopson on 12/23/2017). He previously was using a left internal jugular vein permacath for hemodialysis. This was last exchanged over a wire and 12/31/2017. On 04/21/18 his access was infiltrated and they switched to using his permacath for hemodialysis. Blood cx from HD center showed GNR. It is unclear how many bottles have been positive. He reports a previous perm cath related bacteremia. In the ED, initial temperature 103.2, heart rate 136, respirations 60, O2 sat 95 , blood pressure 163/138. Initial white count 4.6. Hemoglobin 13.4. Platelets 96. Creatinine 11.2. Lactic acid 3.5. BP 0.1. 29. X-ray show cardiomegaly no consolidations. Microbiology: Blood cultures: 04/21 GNR Urine cultures: Respiratory cultures: Current Antimicrobials: cefepime 04/23 Previous Antimicrobials: Past History Past Medical History: acute [place], atrial fib (chronic atrial fibrillation for which she takes warfarin he is followed by Dr. 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 Hopson or 12/23/2017, craniotomy for hemorrhage per previous medical record) Social history: , lives with family. denies: smoking, alcohol abuse, prescription drug abuse Family history: hypertension Medications and Allergies Allergies Allergy/AdvReac Type Severity Reaction Status Date / Time cortisone [Cortisone] Allergy Unknown Verified 04/21/18 14:04 Home Medications Medication Instructions Recorded Confirmed Last Taken Type Cinacalcet HCl [Sensipar] 90 mg PO QPM 05/30/16 04/21/18 04/20/18 History Warfarin Sodium 5 mg PO QDAY 05/30/16 04/21/18 04/20/18 History Metoprolol [Lopressor TAB] 25 mg PO Q12H 12/26/17 04/21/18 Unknown History Sevelamer Carbonate [Renvela] 800 mg PO TIDWM 04/21/18 04/21/18 Unknown History Active Meds: Active Medications Acetaminophen (Tylenol) 650 mg PO Q4H PRN PRN Reason: Pain MILD(1-3)/Fever >100.5/BOOTHE Albuterol (Proventil) 2.5 mg IH Q4HRT PRN PRN Reason: Shortness Of Breath Cinacalcet (Sensipar) 90 mg PO QPM [facility] Last Admin: 04/23/18 17:13 Dose: 90 mg Cefepime HCl (Maxipime/Ns 2 Gm/100 Ml) 2 gm in 100 mls @ 200 mls/hr IV Q24HR [facility] Last Admin: 04/23/18 17:17 Dose: 200 mls/hr Sodium Chloride (Nacl 0.9%) 100 mls @ 999 mls/hr IV YENY PRN PRN Reason: Hypotension Metoprolol Tartrate (Lopressor) 25 mg PO Q12H [facility] Last Admin: 04/24/18 10:00 Dose: Not Given Ondansetron HCl (Zofran) 4 mg IV Q8H PRN PRN Reason: Nausea And Vomiting Sertraline HCl (Zoloft) 50 mg PO QDAY [facility] Last Admin: 04/24/18 10:01 Dose: Not Given Sevelamer Carbonate (Renvela) 800 mg PO TIDWM [facility] Last Admin: 04/24/18 12:00 Dose: Not Given Sodium Chloride (Sodium Chloride Flush Syringe 10 Ml) 10 ml IV BID [facility] Last Admin: 04/23/18 20:23 Dose: 10 ml Sodium Chloride (Sodium Chloride Flush Syringe 10 Ml) 10 ml IV PRN PRN PRN Reason: LINE FLUSH Warfarin Sodium (Coumadin) 5 mg PO DAILY@1700 [facility]; Protocol Last Admin: 04/23/18 17:17 Dose: 5 mg Review of Systems All systems: negative (as per HPI) Physical Examination - Physical Exam Narrative exam: General appearance: Alert in NAD, conversant Eyes: anicteric sclerae, moist conjunctivae; no lid-lag; PERRLA HENT: Atraumatic; oropharynx clear Neck: Trachea midline; supple, no thyromegaly or lymphadenopathy Lungs: CTA, with normal respiratory effort and no intercostal retractions CV: RRR Abdomen: Soft, non-tender; no masses or hepatosplenomegaly Extremities: No peripheral edema or extremity lymphadenopathy Skin: Normal temperature, turgor and texture; no rash, ulcers or subcutaneous nodules Psych: Appropriate affect, alert and oriented to person, place and time. Neuro: alert and oriented x 3. Moving all extermities Lines: left neck perm cath - Constitutional Vitals: Vital Signs Temp Pulse Resp BP Pulse Ox 97.7 F 83 16 111/71 100 04/24/18 11:48 04/24/18 11:48 04/24/18 11:48 04/24/18 11:48 04/24/18 11:48 Temperature -Last 24 Hours Temperature 97.7 F Temperature 97.7 F Temperature 98.3 F Temperature 98.1 F Temperature 98.5 F Temperature 98.0 F Results - Labs CBC & Chem 7: 04/22/18 04:56 04/21/18 13:58 Labs: Abnormal lab results 04/24/18 Range/Units 03:21 PT 27.7 H (12.2-14.9) Sec. INR 2.52 H (0.87-1.13) Assessment and Plan Assessment: 1) Sepsis: Present on admission, manifested by fever, tachycardia, tachypnea, increased lactate. Etiology most likely bacteremia. 2) GNR bacteremia: -Blood cultures 04/21 GNR 3) ESRD on HD (M,W,F) 4) CVA with dysarthria 5) CHF/CO 6) Atrial Fib 7) Nicotine Dependence 8) Previous E. coli septicemia from old perm cath infection on 12/26/17 (Blood cx grew 2 of 4 bottles, repeat blood cx 12/29 neg) s/p exchange over a wire of Left chest HD catheter by vascular on 12/31/17, treated with ceftriaxone IV inpatient then sent home on augmentin 500 mg PO q24h through 01/12/18. 9) AV fistula for hemodialysis-created by Dr. Hopson on 12/23/2017) 10 ) DVT Plan: -per vascular once fistulogram is done and working ok then permcath will be removed -remove perm cath - do not exchange over wire -f/u repeat blood cx -continue cefepime -I asked Dr Arreguin to share with me HD center blood cx final result and MICs -get TTE - second GNR bacteremia I am rounding on 04/27 Thank you for your consultation, will follow up with you. Imelda Rodriguez MD Infectious Diseases Specialist [facility], [place], [facility] M [phone] O [phone]
[2018-04-24 13:03] LABS: Basophils # (Auto) 0.1 K/mm3 (0.0-0.1); Basophils % (Auto) 0.9 % (0.0-1.8); Eosinophils # (Auto) 0.2 K/mm3 (0.0-0.4); Eosinophils % (Auto) 2.5 % (0.0-4.3); Hematocrit 38.4 % (35.5-45.6); Hemoglobin 13.1 gm/dl (11.8-15.2); Lymphocytes # (Auto) 0.5 K/mm3 (1.2-5.4); Lymphocytes % (Auto) 8.5 % (13.4-35.0); Mean Corpuscular HGB Conc 34 % (32-34); Mean Corpuscular Hemoglobin 34 pg (28-32); Mean Corpuscular Volume 100 fl (84-94); Monocytes # (Auto) 0.3 K/mm3 (0.0-0.8); Monocytes % (Auto) 4.4 % (0.0-7.3); Platelet Count 164 K/mm3 (140-440); Red Blood Count 3.85 M/mm3 (3.65-5.03)
[2018-04-24 13:28] LABS: Albumin 3.6 g/dL (3.9-5); Calcium 7.8 mg/dL (8.4-10.2)
[2018-04-24] MEDS ORDERED: HEPARIN 10,000 UNITS/10 ML ONE (14:14)
[2018-04-24] MEDS ORDERED: HEPARIN/NS 5000 UNIT/500ML(CATH LAB) 1,000 ML IR ONE (14:14)
[2018-04-24] MEDS ORDERED: NACL 0.9% 250ML 250 ML ONE (14:19)
[2018-04-24] MEDS ORDERED: VERSED ONE (14:35)
[2018-04-24] MEDS ORDERED: SUBLIMAZE ONE (14:35)
[2018-04-24] MEDS: XYLOCAINE 2% INFILTRATI ONE ×2 (14:41→15:08)
--- NOTE | 2018-04-24 15:28 | Operative Report ---
Operative Report Operative Report: Operative note: Date: 04/24/2018 Preoperative diagnosis: Malfunction of AV fistula Postoperative diagnosis: Same. Operation: Fistulogram, balloon angioplasty of right subclavian vein and basilic vein Surgeon: Ludmila Barrientos. Asst.: none Anesthesia: Monitored sedation. EBL: Minimal Findings: Patent basilic AV fistula was diffuse narrowing in the basilic vein and right subclavian vein Indications: 47-year-old gentleman with malfunction of AV access in the outpatient dialysis center. As well as infection with old PermCath. He was discussed risks, benefits and alternatives of procedure performing fistulogram and possible PermCath removal versus PermCath exchange. Operative details: Patient was brought to the [employer] and placed in supine position with right arm in extension table. Was prepped and draped in sterile fashion. Timeout was performed. Patient was accessed after local anesthetic in retrograde fashion using micropuncture needle and exchanged micropuncture sheath. Fistulogram performed for micropuncture sheath noting slight diffuse narrowing of the basilic vein at the fistula per se and about 70% stenosis of right subclavian vein. Micropuncture sheath was exchanged to a 7 Slovak access sheath. Bentson wire was advanced and maneuvered through stenotic areas using a vertebral catheter. 10 x 40 mm Siler balloon was used initially for balloon angioplasty of right coronary artery was less than 30% stenosis residual and it was slightly inflated throughout the basilic vein in the fistula with good result. At this point wires were removed and access site was sutured using 4-0 Vicryl. Next, left PermCath site was chest were prepped and draped in sterile fashion. Using hemostat cough was dissected free of subcutaneous venous tissue. PermCath was pulled and manual pressure applied until hemostasis so dressings were applied. Patient tolerates procedure well. He was transferred to PACU in stable condition.
[2018-04-24] MEDS: COUMADIN PO SCH (17:18)
[2018-04-24] MEDS: SENSIPAR PO SCH (17:18)
[2018-04-24] MEDS: MAXIPIME/NS 2 GM/100 ML 2 GM/100 ML BAG IV SCH (17:19)
--- NOTE | 2018-04-24 19:32 | Progress Note ---
Assessment and Plan Assessment and Plan - Patient Problems (1) SIRS due to infectious process with acute organ dysfunction Current Visit: Yes Status: Acute Plan to address problem: Iv antibiotics for now Resolving (2) CHF (congestive heart failure) Current Visit: Yes Status: Acute Qualifiers: Heart failure chronicity: acute on chronic Plan to address problem: Strict I/O, monitor uop q shift, daily weight, afterload reduction, chest x ray , supplemental oxygen, cardiology consult. Pt S/P Echo and S/P cardiac cath. (3) Atrial fibrillation with rapid ventricular response Current Visit: Yes Status: Acute Plan to address problem: resume rate control, supportive care. admit to telemetry, (4) Bacteremia associated with intravascular line Current Visit: No Status: Suspected Plan to address problem: Empiric antibiotic therapy, blood cultured, Nephrology consulted and symptoms discussed with nephrology service. Pending removal/replacement of permacath after Nephrology team discussed with vascular service. (5) Atrial fibrillation Current Visit: No Status: Chronic Qualifiers: Atrial fibrillation type: persistent Qualified Code(s): I48.1 - Persistent atrial fibrillation Plan to address problem: Resume rate control, Pt did not take rate control medication due to planned cataract surgery today. (6) ESRD (end stage renal disease) on dialysis Current Visit: No Status: Chronic (7) DVT prophylaxis Current Visit: No Status: Acute Plan to address problem: SCD to BLE while in bed Subjective Date of service: 04/24/18 Principal diagnosis: SIRS Vascath infection Interval history: Sx better Objective - Constitutional Vitals: Vital Signs - 12hr 04/24/18 04/24/18 04/24/18 07:55 09:00 10:00 Temperature 97.7 F Pulse Rate 92 H 92 H Respiratory 18 Rate Blood Pressure 109/84 O2 Sat by Pulse 100 97 Oximetry 04/24/18 04/24/18 11:48 16:16 Temperature 97.7 F 98.4 F Pulse Rate 83 89 Respiratory 16 18 Rate Blood Pressure 111/71 117/61 O2 Sat by Pulse 100 100 Oximetry General appearance: Present: no acute distress, well-nourished - EENT Eyes: PERRL, EOM intact ENT: hearing intact, clear oral mucosa Ears: bilateral: normal - Neck Neck: supple, normal ROM - Respiratory Respiratory effort: normal Respiratory: bilateral: CTA - Breasts Breasts: normal - Cardiovascular Rhythm: regular Heart Sounds: Present: S1 & S2. Absent: gallop, rub Extremities: pulses intact, No edema, normal color, Full ROM - Gastrointestinal General gastrointestinal: Present: soft, non-tender, non-distended, normal bowel sounds - Genitourinary Male genitourinary: normal - Integumentary Integumentary: clear, warm, dry - Musculoskeletal Musculoskeletal: 1, strength equal bilaterally - Neurologic Neurologic: moves all extremities - Psychiatric Psychiatric: memory intact, appropriate mood/affect, intact judgment & insight - Labs CBC & Chem 7: 04/24/18 12:31 04/24/18 12:31 Labs: Abnormal lab results 04/24/18 04/24/18 04/24/18 Range/Units 03:21 12:31 12:31 MCV 100 H (84-94) fl MCH 34 H (28-32) pg RDW 17.0 H (13.2-15.2) % Lymph % (Auto) 8.5 L (13.4-35.0) % Lymph # 0.5 L (1.2-5.4) K/mm3 Seg Neutrophils % 83.7 H (40.0-70.0) % PT 27.7 H (12.2-14.9) Sec. INR 2.52 H (0.87-1.13) BUN 21 H (9-20) mg/dL Creatinine 10.9 H (0.8-1.5) mg/dL Calcium 7.8 L (8.4-10.2) mg/dL Albumin 3.6 L (3.9-5) g/dL
[2018-04-24] MEDS: SODIUM CHLORIDE FLUSH SYRINGE 10 ML IV SCH (21:46)
[2018-04-25 06:03] LABS: INR 2.41 (0.87-1.13)
[2018-04-25] MEDS: SODIUM CHLORIDE FLUSH SYRINGE 10 ML IV SCH ×4 (07:15→22:00)
[2018-04-25] MEDS: MAXIPIME/NS 2 GM/100 ML 2 GM/100 ML BAG IV SCH ×2 (07:16→17:33)
--- NOTE | 2018-04-25 07:36 | Progress Note ---
Assessment and Plan Impression: * End stage renal disease * Catheter associated bacteremia --Blood cx (outpatient HD clinic -Apr 21) - Ecoli/Enterobacter bacteremia, sensitive to Cefepime/Ceftazidime --Permcath removal on Apr 24 * Malfunctioning AVF --s/p fistulogram, angioplasty (Apr 24) * Anemia secondary to ESRD * Secondary hyperparathyroidism Plan: * IJ permcath removed * Continue HD TTS * UF as tolerated * Continue abx per ID * Epogen TIW prn * Dose medications for renal function * Renal diet I Subjective Date of service: 04/25/18 Principal diagnosis: SIRS Vascath infection Interval history: Patient has no complaint Objective - Vital Signs Vital signs: Vital Signs - 12hr 04/24/18 04/24/18 04/25/18 20:16 22:00 00:30 Temperature 98.7 F 97.6 F Pulse Rate 76 76 78 Respiratory 20 20 Rate Blood Pressure 121/77 97/64 [Left] O2 Sat by Pulse 100 99 Oximetry 04/25/18 05:16 Temperature 98.9 F Pulse Rate 76 Respiratory 18 Rate Blood Pressure 95/69 [Left] O2 Sat by Pulse 96 Oximetry - General Appearance General appearance: well-developed, well-nourished EENT: ATNC Cardiology: regular, other (SYLVIA AVF +bruit) Gastrointestinal: normal, no tenderness, no distended Integumentary: no rash, warm and dry Musculoskeletal: other (no edema) Psychiatric: cooperative - Lab 04/24/18 12:31 04/24/18 12:31 Most recent lab results Calcium 7.8 mg/dL (8.4-10.2) L 04/24/18 12:31 Phosphorus 4.30 mg/dL (2.5-4.5) 04/24/18 12:31
[2018-04-25] MEDS: RENVELA PO SCH ×5 (08:10→17:33)
[2018-04-25] MEDS: ZOLOFT PO SCH (10:26)
[2018-04-25] MEDS: LOPRESSOR PO SCH ×2 (10:28→20:00)
[2018-04-25] MEDS ORDERED: NACL 0.9 (PRIMING MACHINE ONLY DIALYSIS) MC ONE (12:53)
--- NOTE | 2018-04-25 14:12 | Progress Note ---
Assessment and Plan Assessment and Plan - Patient Problems (1) SIRS due to infectious process with acute organ dysfunction Current Visit: Yes Status: Acute Plan to address problem: Iv antibiotics for now Resolving Duration of abx per ID (1A) Malfunction of AV Fistula Corrected AV fistula being used for dialysis (2) CHF (congestive heart failure) Current Visit: Yes Status: Acute Qualifiers: Heart failure chronicity: acute on chronic Plan to address problem: Strict I/O, monitor uop q shift, daily weight, afterload reduction, chest x ray , supplemental oxygen, cardiology consult. Pt S/P Echo and S/P cardiac cath. (3) Atrial fibrillation with rapid ventricular response Current Visit: Yes Status: Acute Plan to address problem: resume rate control, supportive care. admit to telemetry, (4) Bacteremia associated with intravascular line Current Visit: No Status: Suspected Plan to address problem: Empiric antibiotic therapy, blood cultured, Nephrology consulted and symptoms discussed with nephrology service. Pending removal/replacement of permacath after Nephrology team discussed with vascular service. (5) Atrial fibrillation Current Visit: No Status: Chronic Qualifiers: Atrial fibrillation type: persistent Qualified Code(s): I48.1 - Persistent atrial fibrillation Plan to address problem: Resume rate control, Pt did not take rate control medication due to planned cataract surgery today. (6) ESRD (end stage renal disease) on dialysis Current Visit: No Status: Chronic (7) DVT prophylaxis Current Visit: No Status: Acute Plan to address problem: SCD to BLE while in bed Subjective Date of service: 04/25/18 Principal diagnosis: SIRS Vascath infection Interval history: Malfunction of AV fistula--Fistulogram, balloon angioplasty of right subclavian vein and basilic vein done Patent basilic AV fistula with diffuse narrowing in the basilic vein and right subclavian vein Infection with old PermCath.- PermCath removal done Objective - Constitutional Vitals: Vital Signs - 12hr 04/25/18 04/25/18 04/25/18 04:23 05:16 09:06 Temperature 98.9 F 97.9 F Pulse Rate 72 76 82 Pulse Rate [ Apical] Respiratory 18 20 Rate Blood Pressure 95/69 119/85 Blood Pressure 95/69 [Left] O2 Sat by Pulse 74 L 96 100 Oximetry 04/25/18 04/25/18 04/25/18 10:00 11:45 12:00 Temperature 98.2 F Pulse Rate 76 76 74 Pulse Rate [ 76 Apical] Respiratory 18 Rate Blood Pressure 123/75 122/61 Blood Pressure [Left] O2 Sat by Pulse Oximetry 04/25/18 04/25/18 04/25/18 12:15 12:30 12:45 Temperature Pulse Rate 71 66 75 Pulse Rate [ Apical] Respiratory Rate Blood Pressure 120/60 111/50 116/62 Blood Pressure [Left] O2 Sat by Pulse Oximetry General appearance: Present: no acute distress, well-nourished - EENT Eyes: PERRL, EOM intact ENT: hearing intact, clear oral mucosa Ears: bilateral: normal - Neck Neck: supple, normal ROM - Respiratory Respiratory effort: normal Respiratory: bilateral: CTA - Breasts Breasts: normal - Cardiovascular Rhythm: regular Heart Sounds: Present: S1 & S2. Absent: gallop, rub Extremities: pulses intact, No edema, normal color, Full ROM - Gastrointestinal General gastrointestinal: Present: soft, non-tender, non-distended, normal bowel sounds - Genitourinary Male genitourinary: normal - Integumentary Integumentary: clear, warm, dry - Musculoskeletal Musculoskeletal: 1, strength equal bilaterally - Neurologic Neurologic: moves all extremities - Psychiatric Psychiatric: memory intact, appropriate mood/affect, intact judgment & insight - Labs CBC & Chem 7: 04/24/18 12:31 04/24/18 12:31 Labs: Abnormal lab results 04/24/18 04/25/18 Range/Units 21:15 04:25 PT 26.8 H (12.2-14.9) Sec. INR 2.41 H (0.87-1.13) POC Glucose 109 H (70-105)
[2018-04-25] MEDS: COUMADIN PO SCH (17:33)
[2018-04-25] MEDS: SENSIPAR PO SCH (17:33)
[2018-04-26] MEDS: RENVELA PO SCH ×3 (08:00→17:24)
[2018-04-26 10:54] LABS: INR 3.28 (0.87-1.13)
[2018-04-26] MEDS: ZOLOFT PO SCH (11:20)
[2018-04-26] MEDS: LOPRESSOR PO SCH ×2 (11:20→20:30)
[2018-04-26] MEDS: SODIUM CHLORIDE FLUSH SYRINGE 10 ML IV SCH (11:21)
--- NOTE | 2018-04-26 14:12 | Progress Note ---
Assessment and Plan Assessment and plan: --Malfunctioning of AV fistula; Had a fistulogram, status post angioplasty[04/24/2018] Continue dialysis per schedule --End-stage renal disease; HD per schedule, nephrology following --Catheter related bacteremia Equal light Enterobacter, continue current antibiotics Follow cultures, ID following --Hypertension; moderate control Continue current antihypertensives and when necessary medications --History of A. fib; rate controlled, continue current management On Coumadin. INR supratherapeutic. Closely monitor, target INR 2-3 --Chronic anemia due to ESRD Procrit during dialysis, closely monitor H&H and transfuse as needed --DVT prophylaxis; heparin renal dose Closely monitor the patient and adjust the management as needed Plan of care reviewed with the patient, family members at the bedside and his nurse History Interval history: Patient seen and examined medical records reviewed No new events reported by the nursing Status post related bacteremia on IV antibiotics Vital signs reviewed, stable Hospitalist Physical - Constitutional Vitals: Temp Pulse Resp BP Pulse Ox 98.6 F 92 H 18 110/70 100 04/26/18 05:19 04/26/18 10:00 04/26/18 05:19 04/26/18 05:19 04/26/18 05:19 General appearance: Present: no acute distress, well-nourished - EENT Eyes: Present: PERRL, EOM intact - Neck Neck: Present: supple, normal ROM - Respiratory Respiratory effort: normal Respiratory: bilateral: diminished, rales, negative: rhonchi, wheezing - Cardiovascular Rhythm: regular Heart Sounds: Present: S1 & S2 - Extremities Extremities: no ischemia, No edema - Abdominal General gastrointestinal: soft, non-tender, non-distended, normal bowel sounds - Integumentary Integumentary: Present: clear, warm - Psychiatric Psychiatric: appropriate mood/affect, cooperative - Neurologic Neurologic: CNII-XII intact, moves all extremities Results - Labs CBC & Chem 7: 04/24/18 12:31 04/24/18 12:31 Labs: Laboratory Last Values WBC 6.4 K/mm3 (4.5-11.0) 04/24/18 12:31 RBC 3.85 M/mm3 (3.65-5.03) 04/24/18 12:31 Hgb 13.1 gm/dl (11.8-15.2) 04/24/18 12:31 Hct 38.4 % (35.5-45.6) 04/24/18 12:31 MCV 100 fl (84-94) H 04/24/18 12:31 MCH 34 pg (28-32) H 04/24/18 12:31 MCHC 34 % (32-34) 04/24/18 12:31 RDW 17.0 % (13.2-15.2) H 04/24/18 12:31 Plt Count 164 K/mm3 (140-440) 04/24/18 12:31 Lymph % (Auto) 8.5 % (13.4-35.0) L 04/24/18 12:31 [place] % (Auto) 4.4 % (0.0-7.3) 04/24/18 12:31 Eos % (Auto) 2.5 % (0.0-4.3) 04/24/18 12:31 Baso % (Auto) 0.9 % (0.0-1.8) 04/24/18 12:31 Lymph # 0.5 K/mm3 (1.2-5.4) L 04/24/18 12:31 [place] # 0.3 K/mm3 (0.0-0.8) 04/24/18 12:31 Eos # 0.2 K/mm3 (0.0-0.4) 04/24/18 12:31 Baso # 0.1 K/mm3 (0.0-0.1) 04/24/18 12:31 Add Manual Diff Complete 04/21/18 13:53 Total Counted 100 04/21/18 13:53 Seg Neutrophils % 83.7 % (40.0-70.0) H 04/24/18 12:31 Seg Neuts % (Manual) 91.0 % (40.0-70.0) H 04/21/18 13:53 Band Neutrophils % 6.0 % 04/21/18 13:53 Lymphocytes % (Manual) 2.0 % (13.4-35.0) L 04/21/18 13:53 Reactive Lymphs % (Man) 0 % 04/21/18 13:53 Monocytes % (Manual) 1.0 % (0.0-7.3) 04/21/18 13:53 Eosinophils % (Manual) 0 % (0.0-4.3) 04/21/18 13:53 Basophils % (Manual) 0 % (0.0-1.8) 04/21/18 13:53 Metamyelocytes % 0 % 04/21/18 13:53 Myelocytes % 0 % 04/21/18 13:53 Promyelocytes % 0 % 04/21/18 13:53 Blast Cells % 0 % 04/21/18 13:53 Nucleated RBC % Not Reportable 04/21/18 13:53 Seg Neutrophils # 5.4 K/mm3 (1.8-7.7) 04/24/18 12:31 Seg Neutrophils # Man 4.2 K/mm3 (1.8-7.7) 04/21/18 13:53 Band Neutrophils # 0.3 K/mm3 04/21/18 13:53 Lymphocytes # (Manual) 0.1 K/mm3 (1.2-5.4) L 04/21/18 13:53 Abs React Lymphs (Man) 0.0 K/mm3 04/21/18 13:53 Monocytes # (Manual) 0.0 K/mm3 (0.0-0.8) 04/21/18 13:53 Eosinophils # (Manual) 0.0 K/mm3 (0.0-0.4) 04/21/18 13:53 Basophils # (Manual) 0.0 K/mm3 (0.0-0.1) 04/21/18 13:53 Metamyelocytes # 0.0 K/mm3 04/21/18 13:53 Myelocytes # 0.0 K/mm3 04/21/18 13:53 Promyelocytes # 0.0 K/mm3 04/21/18 13:53 Blast Cells # 0.0 K/mm3 04/21/18 13:53 WBC Morphology Not Reportable 04/21/18 13:53 Hypersegmented Neuts Not Reportable 04/21/18 13:53 Hyposegmented Neuts Not Reportable 04/21/18 13:53 Hypogranular Neuts Not Reportable 04/21/18 13:53 Smudge Cells Not Reportable 04/21/18 13:53 Toxic Granulation Not Reportable 04/21/18 13:53 Toxic Vacuolation Not Reportable 04/21/18 13:53 Dohle Bodies Not Reportable 04/21/18 13:53 Pelger-Huet Anomaly Not Reportable 04/21/18 13:53 Karla Rods Not Reportable 04/21/18 13:53 Platelet Estimate Appears decreased 04/21/18 13:53 Clumped Platelets Not Reportable 04/21/18 13:53 Plt Clumps, EDTA Not Reportable 04/21/18 13:53 Large Platelets Not Reportable 04/21/18 13:53 Giant Platelets Not Reportable 04/21/18 13:53 Platelet Satelliting Not Reportable 04/21/18 13:53 Plt Morphology Comment Not Reportable 04/21/18 13:53 RBC Morphology Not Reportable 04/21/18 13:53 Dimorphic RBCs Not Reportable 04/21/18 13:53 Polychromasia Not Reportable 04/21/18 13:53 Hypochromasia Not Reportable 04/21/18 13:53 Poikilocytosis Not Reportable 04/21/18 13:53 Anisocytosis 1+ 04/21/18 13:53 Microcytosis Not Reportable 04/21/18 13:53 Macrocytosis Not Reportable 04/21/18 13:53 Spherocytes Not Reportable 04/21/18 13:53 Pappenheimer Bodies Not Reportable 04/21/18 13:53 Sickle Cells Not Reportable 04/21/18 13:53 Target Cells Not Reportable 04/21/18 13:53 Tear Drop Cells Few 04/21/18 13:53 Ovalocytes 1+ 04/21/18 13:53 Helmet Cells Not Reportable 04/21/18 13:53 [place] Bodies Not Reportable 04/21/18 13:53 [place] Rings Not Reportable 04/21/18 13:53 Arie Cells Few 04/21/18 13:53 Bite Cells Not Reportable 04/21/18 13:53 Crenated Cell Not Reportable 04/21/18 13:53 Elliptocytes Few 04/21/18 13:53 Acanthocytes (Spur) Not Reportable 04/21/18 13:53 Rouleaux Not Reportable 04/21/18 13:53 Hemoglobin C Crystals Not Reportable 04/21/18 13:53 Schistocytes Not Reportable 04/21/18 13:53 Malaria parasites Not Reportable 04/21/18 13:53 Jose Luis Bodies Not Reportable 04/21/18 13:53 Hem Pathologist Commnt No 04/21/18 13:53 PT 33.9 Sec. (12.2-14.9) H 04/26/18 07:45 INR 3.28 (0.87-1.13) H 04/26/18 07:45 APTT 35.5 Sec. (24.2-36.6) 04/21/18 14:40 Sodium 137 mmol/L (137-145) 04/24/18 12:31 Potassium 3.6 mmol/L (3.6-5.0) 04/24/18 12:31 Chloride 98.7 mmol/L (98-107) 04/24/18 12:31 Carbon Dioxide 22 mmol/L (22-30) 04/24/18 12:31 Anion Gap 20 mmol/L 04/24/18 12:31 BUN 21 mg/dL (9-20) H 04/24/18 12:31 Creatinine 10.9 mg/dL (0.8-1.5) H 04/24/18 12:31 Estimated GFR 6 ml/min 04/24/18 12:31 BUN/Creatinine Ratio 2 % 04/24/18 12:31 Glucose 79 mg/dL (75-100) 04/24/18 12:31 POC Glucose 101 (70-105) 04/25/18 21:24 Lactic Acid 1.10 mmol/L (0.7-2.0) 04/22/18 04:59 Calcium 7.8 mg/dL (8.4-10.2) L 04/24/18 12:31 Phosphorus 4.30 mg/dL (2.5-4.5) 04/24/18 12:31 Total Bilirubin 0.60 mg/dL (0.1-1.2) 04/24/18 12:31 AST 20 units/L (5-40) 04/24/18 12:31 ALT 8 units/L (7-56) 04/24/18 12:31 Alkaline Phosphatase 77 units/L (35-129) 04/24/18 12:31 Total Creatine Kinase 252 units/L (55-170) H 04/21/18 14:40 Troponin T 0.073 ng/mL (0.00-0.029) H 04/21/18 13:58 NT-Pro-B Natriuret Pep 67211 pg/mL (0-450) H 04/21/18 15:57 Total Protein 7.3 g/dL (6.3-8.2) 04/24/18 12:31 Albumin 3.6 g/dL (3.9-5) L 04/24/18 12:31 Albumin/Globulin Ratio 1.0 % 04/24/18 12:31 Triglycerides 101 mg/dL (2-149) 04/21/18 13:58 Cholesterol 99 mg/dL (50-199) 04/21/18 13:58 LDL Cholesterol Direct 56 mg/dL (50-130) 04/21/18 13:58 HDL Cholesterol 21 mg/dL (40-59) L 04/21/18 13:58 Cholesterol/HDL Ratio 4.71 % 04/21/18 13:58 Lipase 12 units/L (13-60) L 04/21/18 13:58
[2018-04-26] MEDS: SENSIPAR PO SCH (17:24)
[2018-04-26] MEDS: MAXIPIME/NS 2 GM/100 ML 2 GM/100 ML BAG IV SCH (17:25)
--- NOTE | 2018-04-26 19:38 | Progress Note ---
Assessment and Plan Impression: * End stage renal disease * Catheter associated bacteremia --Blood cx (outpatient HD clinic -Apr 21) - Ecoli/Enterobacter bacteremia, sensitive to Cefepime/Ceftazidime --Permcath removal on Apr 24 * Malfunctioning AVF --s/p fistulogram, angioplasty (Apr 24) * Anemia secondary to ESRD * Secondary hyperparathyroidism Plan: * Continue HD TTS via AVF * UF as tolerated * Continue abx per ID * Epogen TIW prn * Dose medications for renal function * Renal diet * AM labs Subjective Date of service: 04/26/18 Principal diagnosis: SIRS Vascath infection Interval history: Patient has no complaint today Objective - Vital Signs Vital signs: Vital Signs - 12hr 04/26/18 04/26/18 04/26/18 09: 10:00 17:18 Temperature 98.3 F 98.2 F Pulse Rate 80 92 H 82 Pulse Rate [ 92 H Apical] Respiratory 18 16 Rate Blood Pressure 116/75 122/85 O2 Sat by Pulse 100 99 Oximetry - General Appearance General appearance: well-developed, well-nourished EENT: ATNC Respiratory: Present: Clear to Ascultation Cardiology: regular, S1S2 Gastrointestinal: normal, no tenderness, no distended Integumentary: no rash, warm and dry Musculoskeletal: other (no edema) Psychiatric: cooperative - Lab 04/24/18 12:31 04/24/18 12:31 Most recent lab results Calcium 7.8 mg/dL (8.4-10.2) L 04/24/18 12:31 Phosphorus 4.30 mg/dL (2.5-4.5) 04/24/18 12:31
[2018-04-27 06:14] LABS: INR 3.51 (0.87-1.13)
[2018-04-27 06:15] LABS: Basophils # (Auto) 0.1 K/mm3 (0.0-0.1); Eosinophils # (Auto) 0.2 K/mm3 (0.0-0.4); Eosinophils % (Auto) 3.6 % (0.0-4.3); Hematocrit 37.1 % (35.5-45.6); Hemoglobin 12.2 gm/dl (11.8-15.2); Lymphocytes # (Auto) 0.9 K/mm3 (1.2-5.4); Lymphocytes % (Auto) 15.1 % (13.4-35.0); Mean Corpuscular HGB Conc 33 % (32-34); Mean Corpuscular Hemoglobin 33 pg (28-32); Mean Corpuscular Volume 100 fl (84-94); Monocytes # (Auto) 0.6 K/mm3 (0.0-0.8); Monocytes % (Auto) 9.1 % (0.0-7.3); Platelet Count 180 K/mm3 (140-440); Red Blood Count 3.71 M/mm3 (3.65-5.03); Red Cell Distribution Width 16.8 % (13.2-15.2)
[2018-04-27 06:34] LABS: Calcium 6.6 mg/dL (8.4-10.2)
[2018-04-27] MEDS: RENVELA PO SCH ×3 (08:38→18:12)
[2018-04-27] MEDS: LOPRESSOR PO SCH ×2 (08:39→21:24)
[2018-04-27] MEDS: ZOLOFT PO SCH (09:38)
--- NOTE | 2018-04-27 15:31 | Progress Note ---
Assessment and Plan Impression: * End stage renal disease * Catheter associated bacteremia --Blood cx (outpatient HD clinic -Apr 21) - Ecoli/Enterobacter bacteremia, sensitive to Cefepime/Ceftazidime --Permcath removal on Apr 24 * Malfunctioning AVF --s/p fistulogram, angioplasty (Apr 24) * Anemia secondary to ESRD * Secondary hyperparathyroidism Plan: * Continue HD TTS via AVF * UF as tolerated * Continue abx per ID * Epogen TIW prn * Dose medications for renal function * Renal diet * AM labs Subjective Date of service: 04/27/18 Principal diagnosis: SIRS Vascath infection Interval history: resting well in bed today Objective - Exam Narrative Exam: General appearance: well-developed, well-nourished EENT: ATNC Respiratory: Present: Clear to Ascultation Cardiology: regular, S1S2 Gastrointestinal: normal, no tenderness, no distended Integumentary: no rash, warm and dry Musculoskeletal: other (no edema) Psychiatric: cooperative - Vital Signs Vital signs: Vital Signs - 12hr 04/27/18 04/27/18 04/27/18 04:12 09:04 09:46 Temperature 97.3 F L 97.8 F Pulse Rate 79 Pulse Rate [ 75 Left Posterior Tibial] Respiratory 20 20 20 Rate Blood Pressure 102/73 107/81 O2 Sat by Pulse 99 Oximetry - Lab 04/27/18 05:37 04/27/18 05:37 Most recent lab results Calcium 6.6 mg/dL (8.4-10.2) L D 04/27/18 05:37 Phosphorus 4.30 mg/dL (2.5-4.5) 04/24/18 12:31
--- NOTE | 2018-04-27 16:10 | Progress Note ---
Assessment and Plan Assessment: 1) Sepsis: better. Etiology most likely bacteremia. 2) GNR bacteremia: -Blood cultures 04/21 (outpatient HD clinic) - Ecoli/Enterobacter bacteremia , sensitive to Cefepime/Ceftazidime -Permcath removal on 04/24 -repeat blood cx 04/21 ngtd -TTE no vegetation 3) ESRD on HD (M,W,F) 4) CVA with dysarthria 5) CHF/NH 6) Atrial Fib 7) Nicotine Dependence 8) Previous E. coli septicemia from old perm cath infection on 12/26/17 (Blood cx grew 2 of 4 bottles, repeat blood cx 12/29 neg) s/p exchange over a wire of Left chest HD catheter by vascular on 12/31/17, treated with ceftriaxone IV inpatient then sent home on augmentin 500 mg PO q24h through 01/12/18. 9) AV fistula for hemodialysis-created by Dr. Hopson on 12/23/2017) 10 ) DVT Plan: -upon discharge will do fortaz 1 g IV q 48h on HD total 2 weeks until 05/08/18. Will send order to HD. Appreciate Renal help. I am signing off Thank you for your consultation, will follow up with you. Imelda Rodriguez MD Infectious Diseases Specialist [facility] ([facility] M [phone] O [phone] Subjective Date of service: 04/27/18 Principal diagnosis: SIRS Vascath infection Interval history: Feels better, no fever, wants to go home. Microbiology: Blood cultures: 04/21 (outpatient HD clinic -Apr 21) - Ecoli/Enterobacter bacteremia, sensitive to Cefepime/Ceftazidime 04/21 ([facility]) ngtd Urine cultures: Respiratory cultures: Current Antimicrobials: cefepime 04/23 Previous Antimicrobials: Objective - Exam Narrative Exam: General appearance: Alert in NAD, conversant Eyes: anicteric sclerae, moist conjunctivae; no lid-lag; PERRLA HENT: Atraumatic; oropharynx clear Neck: Trachea midline; supple, no thyromegaly or lymphadenopathy Lungs: CTA, with normal respiratory effort and no intercostal retractions CV: RRR Abdomen: Soft, non-tender; no masses or hepatosplenomegaly Extremities: +AVF Skin: Normal temperature, turgor and texture; no rash, ulcers or subcutaneous nodules Psych: Appropriate affect, alert and oriented to person, place and time. Neuro: alert and oriented x 3. Moving all extermities Lines: - Constitutional Vitals: Vital Signs Temp Pulse Resp BP Pulse Ox 97.8 F 75 20 107/81 99 04/27/18 09:04 04/27/18 09:46 04/27/18 09:46 04/27/18 09:04 04/27/18 09:04 Temperature -Last 24 Hours Temperature 97.8 F Temperature 97.3 F Temperature 97.6 F Temperature 98.2 F - Labs CBC & Chem 7: 04/27/18 05:37 04/27/18 05:37 Labs: Abnormal lab results 04/27/18 04/27/18 04/27/18 Range/Units 05:37 05:37 05:37 MCV 100 H (84-94) fl MCH 33 H (28-32) pg RDW 16.8 H (13.2-15.2) % [place] % (Auto) 9.1 H (0.0-7.3) % Lymph # 0.9 L (1.2-5.4) K/mm3 Seg Neutrophils % 71.2 H (40.0-70.0) % PT 35.7 H (12.2-14.9) Sec. INR 3.51 H (0.87-1.13) Chloride 97.8 L (98-107) mmol/L BUN 21 H (9-20) mg/dL Creatinine 11.8 H (0.8-1.5) mg/dL Calcium 6.6 L D (8.4-10.2) mg/dL
[2018-04-27] MEDS: SENSIPAR PO SCH (18:12)
[2018-04-27] MEDS: SODIUM CHLORIDE FLUSH SYRINGE 10 ML IV SCH ×3 (18:13→21:26)
[2018-04-27] MEDS: MAXIPIME/NS 2 GM/100 ML 2 GM/100 ML BAG IV SCH (18:31)
--- NOTE | 2018-04-27 19:21 | Progress Note ---
Assessment and Plan Assessment and plan: --Catheter related bacteremia Equal light Enterobacter, continue current antibiotics Follow cultures, ID following --Malfunctioning of AV fistula; Had a fistulogram, status post angioplasty[04/24/2018] Continue dialysis per schedule --End-stage renal disease; HD per schedule, nephrology following --Hypertension; moderate control Continue current antihypertensives and when necessary medications --History of A. fib; rate controlled, continue current management On Coumadin. INR supratherapeutic. Closely monitor, target INR 2-3 --Chronic anemia due to ESRD Procrit during dialysis, closely monitor H&H and transfuse as needed --DVT prophylaxis; heparin renal dose Closely monitor the patient and adjust the management as needed Plan of care reviewed with the patient, family members at the bedside and his nurse History Interval history: Patient seen and examined medical records reviewed No new events reported by the nursing staff Patient has no new complaints Anxious to go home Vital signs reviewed Hospitalist Physical - Constitutional Vitals: Temp Pulse Resp BP Pulse Ox 98.1 F 65 20 108/72 99 04/27/18 16:45 04/27/18 16:45 04/27/18 16:45 04/27/18 16:45 04/27/18 16:45 General appearance: Present: no acute distress, well-nourished - EENT Eyes: Present: PERRL, EOM intact - Neck Neck: Present: supple, normal ROM - Respiratory Respiratory effort: normal Respiratory: bilateral: diminished, rales, negative: rhonchi, wheezing - Cardiovascular Rhythm: regular Heart Sounds: Present: S1 & S2 - Extremities Extremities: no ischemia, No edema - Abdominal General gastrointestinal: soft, non-tender, non-distended, normal bowel sounds - Integumentary Integumentary: Present: clear, warm - Psychiatric Psychiatric: appropriate mood/affect, cooperative - Neurologic Neurologic: CNII-XII intact, moves all extremities Results - Labs CBC & Chem 7: 04/27/18 05:37 04/27/18 05:37 Labs: Laboratory Last Values WBC 6.2 K/mm3 (4.5-11.0) 04/27/18 05:37 RBC 3.71 M/mm3 (3.65-5.03) 04/27/18 05:37 Hgb 12.2 gm/dl (11.8-15.2) 04/27/18 05:37 Hct 37.1 % (35.5-45.6) 04/27/18 05:37 MCV 100 fl (84-94) H 04/27/18 05:37 MCH 33 pg (28-32) H 04/27/18 05:37 MCHC 33 % (32-34) 04/27/18 05:37 RDW 16.8 % (13.2-15.2) H 04/27/18 05:37 Plt Count 180 K/mm3 (140-440) 04/27/18 05:37 Lymph % (Auto) 15.1 % (13.4-35.0) 04/27/18 05:37 [place] % (Auto) 9.1 % (0.0-7.3) H 04/27/18 05:37 Eos % (Auto) 3.6 % (0.0-4.3) 04/27/18 05:37 Baso % (Auto) 1.0 % (0.0-1.8) 04/27/18 05:37 Lymph # 0.9 K/mm3 (1.2-5.4) L 04/27/18 05:37 [place] # 0.6 K/mm3 (0.0-0.8) 04/27/18 05:37 Eos # 0.2 K/mm3 (0.0-0.4) 04/27/18 05:37 Baso # 0.1 K/mm3 (0.0-0.1) 04/27/18 05:37 Add Manual Diff Complete 04/21/18 13:53 Total Counted 100 04/21/18 13:53 Seg Neutrophils % 71.2 % (40.0-70.0) H 04/27/18 05:37 Seg Neuts % (Manual) 91.0 % (40.0-70.0) H 04/21/18 13:53 Band Neutrophils % 6.0 % 04/21/18 13:53 Lymphocytes % (Manual) 2.0 % (13.4-35.0) L 04/21/18 13:53 Reactive Lymphs % (Man) 0 % 04/21/18 13:53 Monocytes % (Manual) 1.0 % (0.0-7.3) 04/21/18 13:53 Eosinophils % (Manual) 0 % (0.0-4.3) 04/21/18 13:53 Basophils % (Manual) 0 % (0.0-1.8) 04/21/18 13:53 Metamyelocytes % 0 % 04/21/18 13:53 Myelocytes % 0 % 04/21/18 13:53 Promyelocytes % 0 % 04/21/18 13:53 Blast Cells % 0 % 04/21/18 13:53 Nucleated RBC % Not Reportable 04/21/18 13:53 Seg Neutrophils # 4.4 K/mm3 (1.8-7.7) 04/27/18 05:37 Seg Neutrophils # Man 4.2 K/mm3 (1.8-7.7) 04/21/18 13:53 Band Neutrophils # 0.3 K/mm3 04/21/18 13:53 Lymphocytes # (Manual) 0.1 K/mm3 (1.2-5.4) L 04/21/18 13:53 Abs React Lymphs (Man) 0.0 K/mm3 04/21/18 13:53 Monocytes # (Manual) 0.0 K/mm3 (0.0-0.8) 04/21/18 13:53 Eosinophils # (Manual) 0.0 K/mm3 (0.0-0.4) 04/21/18 13:53 Basophils # (Manual) 0.0 K/mm3 (0.0-0.1) 04/21/18 13:53 Metamyelocytes # 0.0 K/mm3 04/21/18 13:53 Myelocytes # 0.0 K/mm3 04/21/18 13:53 Promyelocytes # 0.0 K/mm3 04/21/18 13:53 Blast Cells # 0.0 K/mm3 04/21/18 13:53 WBC Morphology Not Reportable 04/21/18 13:53 Hypersegmented Neuts Not Reportable 04/21/18 13:53 Hyposegmented Neuts Not Reportable 04/21/18 13:53 Hypogranular Neuts Not Reportable 04/21/18 13:53 Smudge Cells Not Reportable 04/21/18 13:53 Toxic Granulation Not Reportable 04/21/18 13:53 Toxic Vacuolation Not Reportable 04/21/18 13:53 Dohle Bodies Not Reportable 04/21/18 13:53 Pelger-Huet Anomaly Not Reportable 04/21/18 13:53 Karla Rods Not Reportable 04/21/18 13:53 Platelet Estimate Appears decreased 04/21/18 13:53 Clumped Platelets Not Reportable 04/21/18 13:53 Plt Clumps, EDTA Not Reportable 04/21/18 13:53 Large Platelets Not Reportable 04/21/18 13:53 Giant Platelets Not Reportable 04/21/18 13:53 Platelet Satelliting Not Reportable 04/21/18 13:53 Plt Morphology Comment Not Reportable 04/21/18 13:53 RBC Morphology Not Reportable 04/21/18 13:53 Dimorphic RBCs Not Reportable 04/21/18 13:53 Polychromasia Not Reportable 04/21/18 13:53 Hypochromasia Not Reportable 04/21/18 13:53 Poikilocytosis Not Reportable 04/21/18 13:53 Anisocytosis 1+ 04/21/18 13:53 Microcytosis Not Reportable 04/21/18 13:53 Macrocytosis Not Reportable 04/21/18 13:53 Spherocytes Not Reportable 04/21/18 13:53 Pappenheimer Bodies Not Reportable 04/21/18 13:53 Sickle Cells Not Reportable 04/21/18 13:53 Target Cells Not Reportable 04/21/18 13:53 Tear Drop Cells Few 04/21/18 13:53 Ovalocytes 1+ 04/21/18 13:53 Helmet Cells Not Reportable 04/21/18 13:53 [place] Bodies Not Reportable 04/21/18 13:53 [place] Rings Not Reportable 04/21/18 13:53 [place] Cells Few 04/21/18 13:53 Bite Cells Not Reportable 04/21/18 13:53 Crenated Cell Not Reportable 04/21/18 13:53 Elliptocytes Few 04/21/18 13:53 Acanthocytes (Spur) Not Reportable 04/21/18 13:53 Rouleaux Not Reportable 04/21/18 13:53 Hemoglobin C Crystals Not Reportable 04/21/18 13:53 Schistocytes Not Reportable 04/21/18 13:53 Malaria parasites Not Reportable 04/21/18 13:53 Jose Luis Bodies Not Reportable 04/21/18 13:53 Hem Pathologist Commnt No 04/21/18 13:53 PT 35.7 Sec. (12.2-14.9) H 04/27/18 05:37 INR 3.51 (0.87-1.13) H 04/27/18 05:37 APTT 35.5 Sec. (24.2-36.6) 04/21/18 14:40 Sodium 138 mmol/L (137-145) 04/27/18 05:37 Potassium 3.7 mmol/L (3.6-5.0) 04/27/18 05:37 Chloride 97.8 mmol/L (98-107) L 04/27/18 05:37 Carbon Dioxide 22 mmol/L (22-30) 04/27/18 05:37 Anion Gap 22 mmol/L 04/27/18 05:37 BUN 21 mg/dL (9-20) H 04/27/18 05:37 Creatinine 11.8 mg/dL (0.8-1.5) H 04/27/18 05:37 Estimated GFR 6 ml/min 04/27/18 05:37 BUN/Creatinine Ratio 2 % 04/27/18 05:37 Glucose 79 mg/dL (75-100) 04/27/18 05:37 POC Glucose 88 (70-105) 04/26/18 17:21 Lactic Acid 1.10 mmol/L (0.7-2.0) 04/22/18 04:59 Calcium 6.6 mg/dL (8.4-10.2) L D 04/27/18 05:37 Phosphorus 4.30 mg/dL (2.5-4.5) 04/24/18 12:31 Total Bilirubin 0.60 mg/dL (0.1-1.2) 04/24/18 12:31 AST 20 units/L (5-40) 04/24/18 12:31 ALT 8 units/L (7-56) 04/24/18 12:31 Alkaline Phosphatase 77 units/L (35-129) 04/24/18 12:31 Total Creatine Kinase 252 units/L (55-170) H 04/21/18 14:40 Troponin T 0.073 ng/mL (0.00-0.029) H 04/21/18 13:58 NT-Pro-B Natriuret Pep 39390 pg/mL (0-450) H 04/21/18 15:57 Total Protein 7.3 g/dL (6.3-8.2) 04/24/18 12:31 Albumin 3.6 g/dL (3.9-5) L 04/24/18 12:31 Albumin/Globulin Ratio 1.0 % 04/24/18 12:31 Triglycerides 101 mg/dL (2-149) 04/21/18 13:58 Cholesterol 99 mg/dL (50-199) 04/21/18 13:58 LDL Cholesterol Direct 56 mg/dL (50-130) 04/21/18 13:58 HDL Cholesterol 21 mg/dL (40-59) L 04/21/18 13:58 Cholesterol/HDL Ratio 4.71 % 04/21/18 13:58 Lipase 12 units/L (13-60) L 04/21/18 13:58
[2018-04-28 06:16] LABS: INR 3.01 (0.87-1.13)
[2018-04-28] MEDS: LOPRESSOR PO SCH (08:39)
[2018-04-28] MEDS: RENVELA PO SCH ×2 (08:40→12:00)
[2018-04-28] MEDS: ZOLOFT PO SCH (10:00)
[2018-04-28] MEDS: SODIUM CHLORIDE FLUSH SYRINGE 10 ML IV SCH (10:00)
--- NOTE | 2018-04-28 13:17 | Progress Note ---
Assessment and Plan Impression: * End stage renal disease * Catheter associated bacteremia --Blood cx (outpatient HD clinic -Apr 21) - Ecoli/Enterobacter bacteremia, sensitive to Cefepime/Ceftazidime --Permcath removal on Apr 24 * Malfunctioning AVF --s/p fistulogram, angioplasty (Apr 24) * Anemia secondary to ESRD * Secondary hyperparathyroidism Plan: * Continue HD TTS via AVF * UF as tolerated * Continue abx per ID--iv fortaz for 2 weeks with outpatient hd arranged by renal * Epogen TIW prn * Dose medications for renal function * Renal diet * AM labs * ok to nh home Subjective Date of service: 04/28/18 Principal diagnosis: SIRS Vascath infection Interval history: resting well in bed today Objective - Exam Narrative Exam: General appearance: well-developed, well-nourished EENT: ATNC Respiratory: Present: Clear to Ascultation Cardiology: regular, S1S2 Gastrointestinal: normal, no tenderness, no distended Integumentary: no rash, warm and dry Musculoskeletal: other (no edema) Psychiatric: cooperative - Vital Signs Vital signs: Vital Signs - 12hr 04/28/18 04/28/18 04/28/18 04:24 08:38 08:39 Temperature 98.5 F 97.4 F L Pulse Rate 72 77 Respiratory 20 16 Rate Blood Pressure 105/66 111/76 115/75 O2 Sat by Pulse 99 Oximetry 04/28/18 04/28/18 04/28/18 09:45 10:00 10:15 Temperature 98.2 F Pulse Rate 79 76 69 Respiratory 18 Rate Blood Pressure 112/83 118/76 116/87 O2 Sat by Pulse Oximetry 04/28/18 04/28/18 04/28/18 10:30 10:45 11:00 Temperature Pulse Rate 76 78 78 Respiratory Rate Blood Pressure 123/90 94/63 107/68 O2 Sat by Pulse Oximetry 04/28/18 04/28/18 04/28/18 11:15 11:30 11:45 Temperature Pulse Rate 78 70 78 Respiratory Rate Blood Pressure 100/64 105/77 116/78 O2 Sat by Pulse Oximetry 04/28/18 12:00 Temperature Pulse Rate 86 Respiratory Rate Blood Pressure 98/63 O2 Sat by Pulse Oximetry - Lab 04/27/18 05:37 04/27/18 05:37 Most recent lab results Calcium 6.6 mg/dL (8.4-10.2) L D 04/27/18 05:37 Phosphorus 4.30 mg/dL (2.5-4.5) 04/24/18 12:31
[2018-04-28 14:29] VITALS: BP 115/77
[2018-04-28] MEDS ORDERED: NACL 0.9 (PRIMING MACHINE ONLY DIALYSIS) MC ONE (14:34)
--- NOTE | 2018-04-28 15:20 | Discharge Summary ---
Providers - Providers Date of Admission: 04/21/18 16:27 Date of discharge: 04/28/18 Attending physician: MALAIKA TRIPATHI 04/21/18 15:54 Consult to Physician [CONS] Routine Comment: Consulting Provider: ISABELLE THOMPSON Physician Instructions: Reason For Exam: esrd 04/22/18 17:45 Consult to Physician [CONS] Routine Comment: please call consult to Dr. Renee Consulting Provider: SULY JARAMILLO Physician Instructions: Reason For Exam: gram-negative gregory in blood 04/22/18 17:51 Consult to Physician [CONS] Routine Comment: Consulting Provider: ASHLEE BAEZ Physician Instructions: Reason For Exam: line removal, bacteremia Primary care physician: SECOND BAKER Hospitalization Condition: Fair Hospital course: --Catheter related bacteremia Equal light Enterobacter, continue current antibiotics Follow cultures, ID following --Malfunctioning of AV fistula; Had a fistulogram, status post angioplasty[04/24/2018] Continue dialysis per schedule --End-stage renal disease; HD per schedule, nephrology following --Hypertension; moderate control Continue current antihypertensives and when necessary medications --History of A. fib; rate controlled, continue current management On Coumadin. INR supratherapeutic. Closely monitor, target INR 2-3 --Chronic anemia due to ESRD Procrit during dialysis, closely monitor H&H and transfuse as needed Disposition: DC-01 TO HOME OR SELFCARE Time spent for discharge: 32 min Exam - Constitutional Vitals: Temp Pulse Resp BP Pulse Ox 98.0 F 87 18 115/77 99 04/28/18 14:00 04/28/18 14:00 04/28/18 14:00 04/28/18 14:00 04/28/18 08:38 Plan Activity: no restrictions Diet: renal Additional Instructions: ID rec fortaz 1 g IV q 48h on HD total 2 weeks ,stop date 05/08/18. Follow renal, HD per schedule. Check INR in 2 days [target INR 2 -3] at PMDs office, and adjust Coumadin dose Follow up with: SATURNINO WOMACK MD [Primary Care Provider] - 3-5 Days ISABELLE THOMPSON MD [Staff Physician] - 7 Days Forms: Warfarin Discharge Instruction Prescriptions: Warfarin [Coumadin] 1 mg PO DAILY@1700 #10 tablet
[2018-04-28] MEDS ORDERED: COUMADIN PO SCH (17:00)
== END 2018-04-28 17:21 | disposition home or self-care (01) | DRG 250 ==
LOC: ED 13:01 → 4A 16:27
PROVIDERS: ADMIT Internal Medicine; ATTEND Internal Medicine
PROC: 5A09457 Assistance with Respiratory Ventilation, 24-96 Consecutive Hours, Continuous Positive Airway Pressure (ICD-10-PCS; 2018-04-22)
PROC: 5A1D70Z Performance of Urinary Filtration, Intermittent, Less than 6 Hours Per Day (ICD-10-PCS; 2018-04-23)
PROC: 05753ZZ Dilation of Right Subclavian Vein, Percutaneous Approach (ICD-10-PCS; principal; 2018-04-24)
PROC: 057B3ZZ Dilation of Right Basilic Vein, Percutaneous Approach (ICD-10-PCS; 2018-04-24)
PROC: 02703ZZ Dilation of Coronary Artery, One Artery, Percutaneous Approach (ICD-10-PCS; 2018-04-24)
PROC: B51W1ZZ Fluoroscopy of Dialysis Shunt/Fistula using Low Osmolar Contrast (ICD-10-PCS; 2018-04-24)
PROC: 05PYX3Z Removal of Infusion Device from Upper Vein, External Approach (ICD-10-PCS; 2018-04-24)
PROC: 5A1D70Z Performance of Urinary Filtration, Intermittent, Less than 6 Hours Per Day (ICD-10-PCS; 2018-04-25)
PROC: 5A1D70Z Performance of Urinary Filtration, Intermittent, Less than 6 Hours Per Day (ICD-10-PCS; 2018-04-28)
DX: T82.7XXA Infection and inflammatory reaction due to other cardiac and vascular devices, implants and grafts, initial encounter (principal); A41.9 Sepsis, unspecified organism; N18.6 End stage renal disease; I13.2 Hypertensive heart and chronic kidney disease with heart failure and with stage 5 chronic kidney disease, or end stage renal disease; N25.81 Secondary hyperparathyroidism of renal origin; I48.1 Persistent atrial fibrillation; E87.1 Hypo-osmolality and hyponatremia; E87.2 Acidosis; Z99.2 Dependence on renal dialysis; Y83.2 Surgical operation with anastomosis, bypass or graft as the cause of abnormal reaction of the patient, or of later complication, without mention of misadventure at the time of the procedure; I50.9 Heart failure, unspecified; R47.1 Dysarthria and anarthria; F17.200 Nicotine dependence, unspecified, uncomplicated; I25.10 Atherosclerotic heart disease of native coronary artery without angina pectoris; E87.6 Hypokalemia; D63.1 Anemia in chronic kidney disease; G47.33 Obstructive sleep apnea (adult) (pediatric); F32.9 Major depressive disorder, single episode, unspecified; Y92.89 Other specified places as the place of occurrence of the external cause; Z79.01 Long term (current) use of anticoagulants; I25.2 Old myocardial infarction; Z86.718 Personal history of other venous thrombosis and embolism; Z86.73 Personal history of transient ischemic attack (TIA), and cerebral infarction without residual deficits; Z82.49 Family history of ischemic heart disease and other diseases of the circulatory system; Z79.899 Other long term (current) drug therapy
CPT/HCPCS: 36415; 36902; 71045; 80048; 80053; 80061; 82140; 82550; 82962; 83690; 83880; 84100; 84484; 85007; 85025; 85610; 85730; 87040; 93005; 93010; 93306; 94660; 96360; C1725; C1751; C1769; C1894; J0692; J1644; J2250; J3010; J3370; J7030; J7040; J7050; Q9967